=== PATIENT | female | born 1955 | race Caucasian/White ===

== ENCOUNTER 2022-12-24 07:36 | Inpatient (IN) | payer OTHER, MEDICARE ==
--- OUTSIDE RECORDS SUMMARY | 2022-12-24 07:41 | XMS REPORT | Continuity of Care Document ---
:1955 Author Organization [facility] t Address [address] [place] [address] [place] [id number] Care Team Providers Name Role Phone RAYMOND BRENNAN Primary Care Physician Unavailable Anjel Portillo Attending Clinician UYEN ESTES Attending Clinician Unavailable UYEN ESTES Attending Clinician Unavailable Criselda Villegas RN Attending Clinician Unavailable IGLESIA BUSH Attending Clinician Unavailable ROLDAN TAYLOR Attending Clinician Unavailable Roldan Taylor MD Attending Clinician Raymond Brennan MD Attending Clinician UYEN ESTES Admitting Clinician Unavailable ROLDAN TAYLOR Admitting Clinician Unavailable Payers Payer Name Policy Type Policy Number Effective Date Expiration Date S rené MEDICARE RAILROAD [id number] 2020 A\T\[id number] 00:00:00 [facility] [id number] 2021 MEDICARE SUPPLEMENT 00:00:00 [facility] [id number] 2020 (MEDICARE 00:00:00 REPLACEMENT HMO) Problems Condition Condition Condition Status Onset Resolution Last Treating Co mments Source Name Details Category Date Date Treatment Clinician Date Abnormal Abnormal Disease Active 2021-05 Unive rs findings findings 2-13 ity of on on 00:00: [place] diagnostic diagnostic 00 Me dical imaging of imaging of Br anch other other specified specified body body structures structures Breast Breast Disease Active 2021-05 Univers cancer cancer 2-13 [place] of screening[place] high [place] high risk 00 Medi james patient patient Branch Breast Breast Disease Active 2021-05 Univers pain in pain in 2-13 ity of female female 00:00: [place] 00 Medical Branch Family Family Disease Active 2021-05 Univers history of history of 2-13 it y of breast breast 00:00: [place] cancer in cancer in 00 [facility] sister sister Branch Screening Screening Disease Active 2021-05 Uni vers for for 0-14 [place] of osteoporos osteoporos [place] Medical [place] Other Other Disease Active 2021-05 [facility] specified specified 0-14 [place] of disorders disorders [place] of bone of bone 00 Medical density density Branch and and structure, structure, other site other site BMI BMI Disease Active 2021-05 Univers 32.0-32.9, 32.0-32.9, 0-14 it y of adult adult 00:00: [place] 00 Medical Branch S/P S/P Disease Active 2021-05 Univers hysterecto hysterecto 0-14 it y of my my 00:00: [place] 00 Medical Branch Pap smear Pap smear Disease Active 2021-05 Uni vers of cervix of cervix 0-14 ity of not needed not needed [place] Numbness Numbness Problem Resolve 2022-02-27 Memoria (finding) (finding) d 03:28:37 l Resolved Miguelangel Problem 02/27/2022 [facility] Anemia Anemia Problem Active 2022-12-09 [place] (disorder) (disorder) 13:16:05 l Active [place] Problem 12/09/2022 [facility] [place] 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 13:16:05 l s s Miguelangel (disorder) (disorder) Active Problem 12/09/2022 [facility] [place] Hyperlipid Hyperlipi Problem Active 2022-12-09 Memoria emia demia 13:16:05 l (disorder) (disorder) He rmann Active Problem 12/09/2022 [facility] [place] Lumbar Lumbar Problem Active 2022-12-09 [place] spondylosi spondylosi 13:16:05 l s s [place] (disorder) (disorder) Active Problem 12/09/2022 [facility] [place] 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 Kunal n uncertain of significan uncertain ce significan (disorder) ce (disorder) Active Problem 12/09/2022 [facility] [place] Paresthesi Paresthes Problem Active 2022-12-09 Memoria a ia 13:16:05 l (finding) (finding) Herm carlos alberto Active Problem 12/09/2022 [facility] [place] 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-09 Memoria nerve l nerve 13:16:05 l disease disease Miguelangel (disorder) (disorder) Active Problem 12/09/2022 [facility] [place] Restless Restless Problem Active 2022-12-09 Memoria legs legs 13:16:05 l (disorder) (disorder) [place] Active Problem 12/09/2022 [facility] [place] Allergies, Adverse Reactions, Alerts Allergy Allergy Status Severity Reaction(s) Onset Inactive Treating Comm ents Source Name Type Date Date Clinician NO KNOWN Drug Active Univers ALLERGIE Class ity of S [facility] No Known No Known Active Memori a Medicati Medicati l on on [place] Allergie Allergie s s Social History Social Habit Start Date Stop Date Quantity Comments Source History SDIL University o f Alcohol Frequency [facility] edical Branch History [facility] University o f Alcohol Std Drinks [facility] History [facility] University o f Alcohol Binge [facility] al Branch Gender identity [facility] Alcohol intake 2022-05-02 2022-05-02 .14 /d University of 00:00:00 00:00:00 [facility] Exposure to 2022-02-18 2022-02-28 Not sure University of SARS-CoV-2 (event) 00:00:00 12:59:00 [facility] Cigarettes smoked 2022-02-28 2022-02-28 Univers ity of current (pack per 00:00:00 00:00:00 [facility] ) - Reported Branch Cigarette 2022-02-28 2022-02-28 University of pack-years 00:00:00 00:00:00 [facility] Tobacco use and 2022-02-28 2022-02-28 Smokeless Universit y of exposure 00:00:00 00:00:00 tobacco non-user [facility] [place] [facility] Alcohol Comment 2022-02-28 2022-02-28 per month Universit y of 00:00:00 00:00:00 [facility] History of tobacco 1969-02-28 2000-02-29 Cigarette Smoker University of use 00:00:00 00:00:00 [facility] Sex [birth year] [facility] 00:00:00 00:00:00 Hospital Smoking Status Start Date Stop Date Source Tobacco smoking consumption [facility] unknown Tobacco smoking status 2022-12-06 14:10:32 2022-12-06 14:10:32 [facility] Medications Ordered Filled Start Stop Current Ordering Indication Dosage Frequency Signature Comments Components Source Medication Medication Date Date Medication? Clinician (SIG) Name Name celecoxib Yes TAKE ONE [place] 200 mg oral 7-19 (1) l capsule 14:20: CAPSULE(S) Herm carlos alberto 00 BY MOUTH TWICE A DAY NEEDED. rOPINIRole Yes See Memoria 2 mg oral 6-20 Instructio l tablet 14:40: ns, TAKE Miguelangel 00 ONE (1) TABLET(S) BY MOUTH AT BEDTIME., # 90 ea, 1 Refill(s), Pharmacy: [place] [id number], 167.64, cm, 08/29/22 11:23:00 CDT, Height, 92.727, kg, 08/29/22 11:23:00 CDT, Weight gadobenate 2023- No [id number] .2mL/kg 0.2 mL/kg, Univers dimeglumine 10-03 05-16 Intravenou i ty of (MULTIHANCE 17:00: 16:59 s, ONCE, 1 [place] -15 mL) 00 :00 dose, On Medical injection [facility] Branch 0.2 mL/kg 10/03/22 at 1200, Routine iron 2022-0 Yes 325 mg = 1 Memoria sulfate 4-11 tab, PO, l (ferrous 16:56: Daily, 0 Aleyda nn sulfate) 00 Refill(s) 325 mg oral tablet iron 2022-0 Yes 325 mg = 1 Memoria sulfate 4-11 tab, PO, l (ferrous 16:56: Daily, 0 Aleyda nn sulfate) 00 Refill(s) 325 mg oral tablet rOPINIRole 2022-0 Yes 2 mg = 1 Mem oria 2 mg oral 2-21 tab, PO, l tablet 20:09: Bedtime, # Aleyda nn 90 tab, 1 Refill(s), Pharmacy: [facility] [place], 167.64, cm, 07/11/22 13:52:00 DIRECTOR LOAN, Height, 92.273, kg, 07/11/22 13:52:00 DIRECTOR LOAN, Weight rOPINIRole 2023-0 Yes 2 mg = 1 Mem oria 2 mg oral 2-21 tab, PO, l tablet 20:09: Bedtime, # Aleyda nn 90 tab, 1 Refill(s), Pharmacy: [facility] Pharm[facility] [place], 167.64, cm, 07/11/22 13:52:00 DIRECTOR LOAN, Height, 92.273, kg, 07/11/22 13:52:00 DIRECTOR LOAN, Weight pregabalin 2-1 Yes 100mg Take 100 Un charlie 100 mg 0-11 mg by ity of capsule 13:52: mouth in [place] [address] the Medical morning. Branch pregabalin 2-1 Yes 100mg Take 100 Un charlie 100 mg 0-11 mg by ity of capsule 13:52: mouth in [place] [address] the Medical morning. Branch pregabalin 2022-1 Yes 100mg Take 100 Un charlie 100 mg 0-11 mg by ity of capsule 13:52: mouth in [place] [address] the Medical morning. Branch pregabalin 2022-1 Yes 100mg Take 100 Un charlie 100 mg 0-11 mg by ity of capsule 13:52: mouth in [place] [address] the Medical morning. Branch pregabalin 2022-1 Yes 100mg Take 100 Un charlie 100 mg 0-11 mg by ity of capsule 13:52: mouth in [place] [address] the Medical morning. Branch pregabalin 2022-1 Yes 100mg Take 100 Un charlie 100 mg 0-11 mg by ity of capsule 13:52: mouth in [place] [address] the Medical morning. Branch pregabalin 2022-1 Yes 100mg Take 100 Un charlie 100 mg 0-11 mg by ity of capsule 13:52: mouth in [place] [address] the Medical morning. Branch pregabalin 2022-1 Yes 100mg Take 100 Un charlie 100 mg 0-11 mg by ity of capsule 13:52: mouth in [place] [address] the Medical morning. Branch pregabalin 2022-1 Yes 100mg Take 100 Un charlie 100 mg 0-11 mg by ity of capsule 13:52: mouth in [place] 33 the Medical morning. Branch latanoprost 2021-05 Yes INSTILL Mem oria ophthalmic 0-07 ONE (1) l 0.005% 20:49: DROP IN [place] solution 00 EACH EYE AT BEDTIME. rOPINIRole 2021-05 Yes TAKE ONE Mem oria 1 mg oral 0-07 (1) l tablet 20:49: TABLET(S) [place] n 00 BY MOUTH AT BEDTIME. DULoxetine 2021-05 Yes TAKE ONE Mem oria 60 mg oral 0-07 (1) l delayed 20:49: CAPSULE(S) Herm carlos alberto release 00 BY MOUTH capsule DAILY WITH FOOD. atorvastati 2021-05 Yes TAKE ONE Me moria n 40 mg 0-07 (1) l oral tablet 20:49: TABLET(S) H ermann 00 BY MOUTH AT BEDTIME. trazodone 2021-05 Yes TAKE ONE [place] 100 mg oral 0-07 (1) l tablet 20:49: TABLET(S) [place] n 00 BY MOUTH AT BEDTIME FOR INSOMNIA. latanoprost 2021-05 Yes INSTILL Mem oria ophthalmic 0-07 ONE (1) l 0.005% 20:49: DROP IN [place] solution 00 EACH EYE AT BEDTIME. rOPINIRole 2021-05 Yes TAKE ONE Mem oria 1 mg oral 0-07 (1) l tablet 20:49: TABLET(S) [place] n 00 BY MOUTH AT BEDTIME. DULoxetine 2021-05 Yes TAKE ONE Mem oria 60 mg oral 0-07 (1) l delayed 20:49: CAPSULE(S) Herm carlos alberto release 00 BY MOUTH capsule DAILY WITH FOOD. atorvastati 2021-05 Yes TAKE ONE Me moria n 40 mg 0-07 (1) l oral tablet 20:49: TABLET(S) H ermann 00 BY MOUTH AT BEDTIME. pregabalin 2021-05 Yes TAKE ONE Mem oria 100 mg oral 0-07 (1) l capsule 20:49: CAPSULE(S) Herm carlos alberto 00 BY MOUTH ONCE A DAY. trazodone 2021-05 Yes TAKE ONE [place] 100 mg oral 0-07 (1) l tablet 20:49: TABLET(S) [place] n 00 BY MOUTH AT BEDTIME FOR INSOMNIA. pregabalin 2021-05 Yes TAKE ONE Mem oria 100 mg oral 0-07 (1) l capsule 20:49: CAPSULE(S) Herm carlos alberto 00 BY MOUTH ONCE A DAY. omeprazole 2021-05 Yes TAKE ONE Mem oria 20 mg oral 0-07 (1) l delayed 20:49: CAPSULE(S) Herm carlos alberto release 00 BY MOUTH capsule DAILY. omeprazole 2021-05 Yes TAKE ONE Mem oria 20 mg oral 0-07 (1) l delayed 20:49: CAPSULE(S) Herm carlos alberto release 00 BY MOUTH capsule DAILY. latanoprost 2021-05 Yes INSTILL Mem oria ophthalmic 0-07 ONE (1) l 0.005% 20:49: DROP IN [place]angel solution 00 EACH EYE AT BEDTIME. rOPINIRole 2021-05 Yes TAKE ONE Mem oria 1 mg oral 0-07 (1) l tablet 20:49: TABLET(S) [place] n 00 BY MOUTH AT BEDTIME. DULoxetine 2021-05 Yes TAKE ONE Mem oria 60 mg oral 0-07 (1) l delayed 20:49: CAPSULE(S) Herm carlos alberto release 00 BY MOUTH capsule DAILY WITH FOOD. atorvastati 2021-05 Yes TAKE ONE Me moria n 40 mg 0-07 (1) l oral tablet 20:49: TABLET(S) H ermann 00 BY MOUTH AT BEDTIME. trazodone 2021-05 Yes TAKE ONE [place] 100 mg oral 0-07 (1) l tablet 20:49: TABLET(S) Kunal n 00 BY MOUTH AT BEDTIME FOR INSOMNIA. pregabalin 2021-05 Yes TAKE ONE Mem oria 100 mg oral 0-07 (1) l capsule 20:49: CAPSULE(S) Herm carlos alberto 00 BY MOUTH ONCE A DAY. omeprazole 2021-05 Yes TAKE ONE Mem oria 20 mg oral 0-07 (1) l delayed 20:49: CAPSULE(S) Herm carlos alberto release 00 BY MOUTH capsule DAILY. latanoprost 2021-05 Yes INSTILL Mem oria ophthalmic 0-07 ONE (1) l 0.005% 20:49: DROP IN [place]angel solution 00 EACH EYE AT BEDTIME. DULoxetine 2021-05 Yes TAKE ONE Mem oria 60 mg oral 0-07 (1) l delayed 20:49: CAPSULE(S) Herm carlos alberto release 00 BY MOUTH capsule DAILY WITH FOOD. atorvastati 2021-05 Yes TAKE ONE Me moria n 40 mg 0-07 (1) l oral tablet 20:49: TABLET(S) H ermann 00 BY MOUTH AT BEDTIME. trazodone 2021-05 Yes TAKE ONE [place] 100 mg oral 0-07 (1) l tablet 20:49: TABLET(S) Kunal n 00 BY MOUTH AT BEDTIME FOR INSOMNIA. pregabalin 2021-05 Yes TAKE ONE Mem oria 100 mg oral 0-07 (1) l capsule 20:49: CAPSULE(S) Herm carlos alberto 00 BY MOUTH ONCE A DAY. omeprazole 2021-05 Yes TAKE ONE Mem oria 20 mg oral 0-07 (1) l delayed 20:49: CAPSULE(S) Herm carlos alberto release 00 BY MOUTH capsule DAILY. rOPINIRole 2021-05 Yes TAKE ONE Mem oria 1 mg oral 0-07 (1) l tablet 20:49: TABLET(S) Kunal n 00 BY MOUTH AT BEDTIME. Alpha 2021-05 Yes PO, 0 Memoria Lipoic Acid 0-07 Refill(s) l 20:48: Miguel[place] 00 Alpha 2021-05 Yes PO, 0 Memoria Lipoic Acid 0-07 Refill(s) l 20:48: [place] 00 Alpha 2021-05 Yes PO, 0 Memoria Lipoic Acid 0-07 Refill(s) l 20:48: [place] 00 Alpha 2021-05 Yes PO, 0 Memoria Lipoic Acid 0-07 Refill(s) l 20:48: [place] 00 clobetasoL 2021-05 Yes APPLY TO Uni vers 0.05 % 0-07 AFFECTED ity of cream 00:00: AREA TWICE [place] 00 A DAY FOR Medical 2 WEEKS, Branch THEN STOP FOR 1 WEEK. omeprazole 2021-05 Yes 20mg Take 20 mg U nivers 20 mg 0-07 by mouth ity of capsule 00:00: in the [place] 00 morning. Medical Branch clobetasoL 2021-05 Yes APPLY TO Uni vers 0.05 % 0-07 AFFECTED ity of cream 00:00: AREA TWICE [place] 00 A DAY FOR Medical 2 WEEKS, Branch THEN STOP FOR 1 WEEK. omeprazole 2021-05 Yes 20mg Take 20 mg U nivers 20 mg 0-07 by mouth ity of capsule 00:00: in the [place] 00 morning. Medical Branch clobetasoL 2021- Yes APPLY TO Uni vers 0.05 % 0-07 AFFECTED ity of cream 00:00: AREA TWICE [place] 00 A DAY FOR Medical 2 WEEKS, Branch THEN STOP FOR 1 WEEK. omeprazole 2-1 Yes 20mg Take 20 mg U nivers 20 mg 0-07 by mouth ity of capsule 00:00: in the [place] 00 morning. Medical Branch clobetasoL 2021- Yes APPLY TO Uni vers 0.05 % 0-07 AFFECTED ity of cream 00:00: AREA TWICE [place] 00 A DAY FOR Medical 2 WEEKS, Branch THEN STOP FOR 1 WEEK. omeprazole 2021-1 Yes 20mg Take 20 mg U nivers 20 mg 0-07 by mouth ity of capsule 00:00: in the [place] 00 morning. Medical Branch clobetasoL 2021- Yes APPLY TO Uni vers 0.05 % 0-07 AFFECTED ity of cream 00:00: AREA TWICE [place] 00 A DAY FOR Medical 2 WEEKS, Branch THEN STOP FOR 1 WEEK. omeprazole 2021-1 Yes 20mg Take 20 mg U nivers 20 mg 0-07 by mouth ity of capsule 00:00: in the [place] 00 morning. Medical Branch clobetasoL 2021- Yes APPLY TO Uni vers 0.05 % 0-07 AFFECTED ity of cream 00:00: AREA TWICE [place] 00 A DAY FOR Medical 2 WEEKS, Branch THEN STOP FOR 1 WEEK. omeprazole 2021- Yes 20mg Take 20 mg U nivers 20 mg 0-07 by mouth ity of capsule 00:00: in the [place] 00 morning. Medical Branch clobetasoL 2021- Yes APPLY TO Uni vers 0.05 % 0-07 AFFECTED ity of cream 00:00: AREA TWICE [place] 00 A DAY FOR Medical 2 WEEKS, Branch THEN STOP FOR 1 WEEK. omeprazole 2-1 Yes 20mg Take 20 mg U nivers 20 mg 0-07 by mouth ity of capsule 00:00: in the [place] 00 morning. Medical Branch clobetasoL 2021- Yes APPLY TO Uni vers 0.05 % 0-07 AFFECTED ity of cream 00:00: AREA TWICE [place] 00 A DAY FOR Medical 2 WEEKS, Branch THEN STOP FOR 1 WEEK. omeprazole 2-1 Yes 20mg Take 20 mg U nivers 20 mg 0-07 by mouth ity of capsule 00:00: in the [place] 00 morning. [facility] barium 2021-0 2022- No [id number] 680g 680 g, Uni vers sulfate 02-01 Oral, ity of (LIQUID E-Z 13:00: 13:00 ONCE, 1 [place] HELMS) 60 % 00 :00 dose, On Medi james (w/v) oral [facility] suspension 02/01/22 at 680 g 0800, Routine DULoxetine Yes TAKE ONE Uni vers 60 mg 8-26 (1) ity of capsule 00:00: CAPSULE(S) [place] 00 BY MOUTH Medical DAILY WITH [place] FOOD. latanoprost Yes INSTILL Uni vers 0.005 % 8-26 ONE (1) ity of ophthalmic 00:00: DROP [place] drops 00 EACH EYE Medical AT [place] BEDTIME. rOPINIRole Yes 1mg Take 1 mg Un charlie 1 mg tablet 8-26 by mouth ity of 00:00: at [place] [address] bedtime. [facility] Branch DULoxetine Yes TAKE ONE Uni vers 60 mg 8-26 (1) ity of capsule 00:00: CAPSULE(S) [place] 00 BY MOUTH Medical DAILY WITH [place] FOOD. latanoprost Yes INSTILL Uni vers 0.005 % 8-26 ONE (1) ity of ophthalmic 00:00: DROP [place] drops 00 EACH EYE Medical AT [place] BEDTIME. rOPINIRole 0 Yes 1mg Take 1 mg Un charlie 1 mg tablet 8-26 by mouth ity of 00:00: at [place] [address] bedtime. [facility] DULoxetine Yes TAKE ONE Uni vers 60 mg 8-26 (1) ity of capsule 00:00: CAPSULE(S) [place] 00 BY MOUTH Medical DAILY WITH [place] FOOD. latanoprost Yes INSTILL Uni vers 0.005 % 8-26 ONE (1) ity of ophthalmic 00:00: DROP [place] drops 00 EACH EYE Medical AT [place] BEDTIME. rOPINIRole Yes 1mg Take 1 mg Un charlie 1 mg tablet 8-26 by mouth ity of 00:00: at [place] [address] bedtime. [facility] DULoxetine Yes TAKE ONE Uni vers 60 mg 8-26 (1) ity of capsule 00:00: CAPSULE(S) [place] 00 BY MOUTH Medical DAILY WITH [place] FOOD. latanoprost 2-0 Yes INSTILL Uni vers 0.005 % 8-26 ONE (1) ity of ophthalmic 00:00: DROP [place] drops 00 EACH EYE Medical AT [place] BEDTIME. rOPINIRole 2-0 Yes 1mg Take 1 mg Un charlie 1 mg tablet 8-26 by mouth ity of 00:00: at [place] [address] bedtime. Medical Branch DULoxetine 2021-0 Yes TAKE ONE Uni vers 60 mg 8-26 (1) ity of capsule 00:00: CAPSULE(S) [place] 00 BY MOUTH Medical DAILY WITH [place] FOOD. latanoprost 2-0 Yes INSTILL Uni vers 0.005 % 8-26 ONE (1) ity of ophthalmic 00:00: [place]OP [place] drops 00 EACH EYE Medical AT [place] BEDTIME. rOPINIRole 2-0 Yes 1mg Take 1 mg Un charlie 1 mg tablet 8-26 by mouth ity of 00:00: at [place] [address] bedtime. Medical Branch DULoxetine 2021-0 Yes TAKE ONE Uni vers 60 mg 8-26 (1) ity of capsule 00:00: CAPSULE(S) [place] 00 BY MOUTH Medical DAILY WITH [place] FOOD. latanoprost 2-0 Yes INSTILL Uni vers 0.005 % 8-26 ONE (1) ity of ophthalmic 00:00: DROP [place] drops 00 EACH EYE Medical AT [place] BEDTIME. rOPINIRole 2-0 Yes 1mg Take 1 mg Un charlie 1 mg tablet 8-26 by mouth ity of 00:00: at [place] [address] bedtime. Medical Branch DULoxetine 2021-0 Yes TAKE ONE Uni vers 60 mg 8-26 (1) ity of capsule 00:00: CAPSULE(S) [place] 00 BY MOUTH Medical DAILY WITH [place] FOOD. latanoprost 2-0 Yes INSTILL Uni vers 0.005 % 8-26 ONE (1) ity of ophthalmic 00:00: DROP [place] drops 00 EACH EYE Medical AT [place] BEDTIME. rOPINIRole 2-0 Yes 1mg Take 1 mg Un charlie 1 mg tablet 8-26 by mouth ity of 00:00: at [place] [address] bedtime. Medical Branch DULoxetine 2022-0 Yes TAKE ONE Uni vers 60 mg 8-26 (1) ity of capsule 00:00: CAPSULE(S) [place] 00 BY MOUTH Medical DAILY WITH [place] FOOD. latanoprost 0 Yes INSTILL Uni vers 0.005 % 8-26 ONE (1) ity of ophthalmic 00:00: DROP [place] drops 00 EACH EYE Medical AT [place] BEDTIME. rOPINIRole 0 Yes 1mg Take 1 mg Un charlie 1 mg tablet 8-26 by mouth ity of 00:00: at [place] [address] bedtime. Medical Branch DULoxetine Yes TAKE ONE Uni vers 60 mg 8-26 (1) ity of capsule 00:00: CAPSULE(S) [place] 00 BY MOUTH Medical DAILY WITH [place] FOOD. latanoprost Yes INSTILL Uni vers 0.005 % 8-26 ONE (1) ity of ophthalmic 00:00: DROP [place] drops 00 EACH EYE Medical AT [place] BEDTIME. rOPINIRole 0 Yes 1mg Take 1 mg Un charlie 1 mg tablet 8-26 by mouth ity of 00:00: at [place] [address] bedtime. Medical Branch atorvastati Yes 40mg Take 40 mg Univers n 40 mg 8-10 by mouth ity of tablet 00:00: at [place] [address] bedtime. Medical Branch atorvastati 0 Yes 40mg Take 40 mg Univers n 40 mg 8-10 by mouth ity of tablet 00:00: at [place] [address] bedtime. Medical Branch atorvastati 0 Yes 40mg Take 40 mg Univers n 40 mg 8-10 by mouth ity of tablet 00:00: at [place] [address] bedtime. Medical Branch atorvastati 0 Yes 40mg Take 40 mg Univers n 40 mg 8-10 by mouth ity of tablet 00:00: at [place] [address] bedtime. Medical Branch atorvastati 0 Yes 40mg Take 40 mg Univers n 40 mg 8-10 by mouth ity of tablet 00:00: at [place] [address] bedtime. Medical Branch atorvastati 0 Yes 40mg Take 40 mg Univers n 40 mg 8-10 by mouth ity of tablet 00:00: at [place] [address] bedtime. Medical Branch atorvastati 0 Yes 40mg Take 40 mg Univers n 40 mg 8-10 by mouth ity of tablet 00:00: at [place] bedtime. Medical Branch atorvastati 2021-0 Yes 40mg Take 40 mg Univers n 40 mg 8-10 by mouth ity of tablet 00:00: at [place] bedtime. Medical Branch atorvastati 2021-0 Yes 40mg Take 40 mg Univers n 40 mg 8-10 by mouth ity of tablet 00:00: at [place] [address] bedtime. Medical Branch traZODone 2021-0 Yes TAKE ONE Univ ers 100 mg 7-28 (1) ity of tablet 00:00: TABLET(S) BY [facility] FOR INSOMNIA. traZODone 2021-0 Yes TAKE ONE Univ ers 100 mg 7-28 (1) ity of tablet 00:00: TABLET(S) BY [facility] FOR INSOMNIA. traZODone 2021-0 Yes TAKE ONE Univ ers 100 mg 7-28 (1) ity of tablet 00:00: TABLET(S) [place] BY [facility] FOR INSOMNIA. traZODone 2021-0 Yes TAKE ONE Univ ers 100 mg 7-28 (1) ity of tablet 00:00: TABLET(S) [place] BY [facility] FOR INSOMNIA. traZODone 2021-0 Yes TAKE ONE Univ ers 100 mg 7-28 (1) ity of tablet 00:00: TABLET(S) BY [facility] FOR INSOMNIA. traZODone 2021-0 Yes TAKE ONE Univ ers 100 mg 7-28 (1) ity of tablet 00:00: TABLET(S) BY [facility] FOR INSOMNIA. traZODone 2021-0 Yes TAKE ONE Univ ers 100 mg 7-28 (1) ity of tablet 00:00: TABLET(S) [place] BY [facility] FOR INSOMNIA. traZODone 2-0 Yes TAKE ONE Univ ers 100 mg 7-28 (1) ity of tablet 00:00: TABLET(S) BY [facility] FOR INSOMNIA. traZODone 2-0 Yes TAKE ONE Univ ers 100 mg 7-28 (1) ity of tablet 00:00: TABLET(S) [place] 00 BY MOUTH Medical AT BEDTIME Branch FOR INSOMNIA. polyethylen 0 Yes DRINK 8 Uni vers e 7-20 [facility] ity of glycol-elec 00:00: [place] 00 MINUTES Medical 420 gram STARTING Branch solution AT 7 PM UNTIL IT IS 1/2 GONE. THEN 4 HOURS PRIOR DRINK 8 [facility] EVERY 15 MINUTES UNTIL FINISHED. polyethylen Yes DRINK 8 Uni vers e 7-20 [facility] ity of glycol-elec 00:00: [place] 00 MINUTES Medical 420 gram STARTING Branch solution AT 7 PM UNTIL IT IS 1/2 GONE. THEN 4 HOURS PRIOR DRINK 8 [facility] EVERY 15 MINUTES UNTIL FINISHED. polyethylen 0 Yes DRINK 8 Uni vers e 7-20 [facility] ity of glycol-elec 00:00: EVERY 15 [place] 00 MINUTES Medical 420 gram STARTING Branch solution AT 7 PM UNTIL IT IS 1/2 GONE. THEN 4 HOURS PRIOR DRINK 8 [facility] EVERY 15 MINUTES UNTIL FINISHED. polyethylen 0 Yes DRINK 8 Uni vers e 7-20 [facility] ity of glycol-elec 00:00: EVERY [place] 00 MINUTES Medical 420 gram STARTING Branch solution AT 7 PM UNTIL IT IS 1/2 GONE. THEN 4 HOURS PRIOR DRINK 8 [facility] EVERY 15 MINUTES UNTIL FINISHED. polyethylen 0 Yes DRINK 8 Uni vers e 7-20 [facility] ity of glycol-elec 00:00: EVERY [place] 00 MINUTES Medical 420 gram STARTING Branch solution AT 7 PM UNTIL IT IS 1/2 GONE. THEN 4 HOURS PRIOR DRINK 8 [facility] EVERY 15 MINUTES UNTIL FINISHED. polyethylen 0 Yes DRINK 8 Uni vers e 7-20 [facility] ity of glycol-elec 00:00: EVERY [place] 00 MINUTES Medical 420 gram STARTING Branch solution AT 7 PM UNTIL IT IS 1/2 GONE. THEN 4 HOURS PRIOR DRINK 8 [facility] EVERY 15 MINUTES UNTIL FINISHED. polyethylen 0 Yes DRINK 8 Uni vers e 7-20 [facility] ity of glycol-elec 00:00: EVERY 15 [place] 00 MINUTES Medical 420 gram STARTING Branch solution AT 7 PM UNTIL IT IS 1/2 GONE. THEN 4 HOURS PRIOR DRINK 8 [facility] EVERY 15 MINUTES UNTIL FINISHED. polyethylen 0 Yes DRINK 8 Uni vers e 7-20 [facility] ity of glycol-elec 00:00: EVERY 15 [place] 00 MINUTES Medical 420 gram STARTING Branch solution AT 7 PM UNTIL IT IS 1/2 GONE. THEN 4 HOURS PRIOR DRINK 8 [facility] EVERY 15 MINUTES UNTIL FINISHED. polyethylen 2021-0 Yes DRINK 8 Uni vers e 7-20 [facility] ity of glycol-elec 00:00: EVERY 15 [place] 00 MINUTES Medical 420 gram STARTING Branch solution AT 7 PM UNTIL IT IS 1/2 GONE. THEN 4 HOURS PRIOR DRINK 8 OUNCES EVERY 15 MINUTES UNTIL FINISHED. Immunizations Ordered Filled Immunization Date Status Comments [facility] Immunization Name Name SARS-COV-2 COVID-19 2021-12-14 Completed Unive rsity of PFIZER VACCINE 00:00:00 [facility] SARS-COV-2 COVID-19 2021-12-14 Completed Unive rsity of PFIZER VACCINE 00:00:00 [facility] SARS-COV-2 COVID-19 2021-12-14 Completed Unive rsity of PFIZER VACCINE 00:00:00 [facility] SARS-COV-2 COVID-19 2021-12-14 Completed Unive rsity of PFIZER VACCINE 00:00:00 [facility] SARS-COV-2 COVID-19 2021-12-14 Completed Unive rsity of PFIZER VACCINE 00:00:00 [facility] SARS-COV-2 COVID-19 2021-12-14 Completed Unive rsity of PFIZER VACCINE 00:00:00 [facility] SARS-COV-2 COVID-19 2021-12-14 Completed Unive rsity of PFIZER VACCINE 00:00:00 [facility] SARS-COV-2 COVID-19 2021-12-14 Completed Unive rsity of PFIZER VACCINE 00:00:00 [facility] SARS-COV-2 COVID-19 2021-12-14 Completed Unive rsity of PFIZER VACCINE 00:00:00 [facility] SARS-COV-2 COVID-19 2021-04-07 Completed Unive rsity of PFIZER VACCINE 00:00:00 [facility] SARS-COV-2 COVID-19 2021-04-07 Completed Unive rsity of PFIZER VACCINE 00:00:00 [facility] SARS-COV-2 COVID-19 2021-04-07 Completed Unive rsity of PFIZER VACCINE 00:00:00 [facility] SARS-COV-2 COVID-19 2021-04-07 Completed Unive rsity of PFIZER VACCINE 00:00:00 [facility] SARS-COV-2 COVID-19 2021-04-07 Completed Unive rsity of PFIZER VACCINE 00:00:00 [facility] SARS-COV-2 COVID-19 2021-04-07 Completed Unive rsity of PFIZER VACCINE 00:00:00 [facility] SARS-COV-2 COVID-19 2021-04-07 Completed Unive rsity of PFIZER VACCINE 00:00:00 [facility] SARS-COV-2 COVID-19 2021-04-07 Completed Unive rsity of PFIZER VACCINE 00:00:00 [facility] SARS-COV-2 COVID-19 2021-04-07 Completed Unive rsity of PFIZER VACCINE 00:00:00 [facility] Zoster(Zostavax)( 2021-02-01 Completed Unive rsity of ingles) 00:00:00 [facility] Influenza Virus 2021-02-01 Completed Universit y of Vaccine Quad Nasal 00:00:00 [facility] Zoster(Zostavax)( 2021-02-01 Completed Unive rsity of ingles) 00:00:00 [facility] Influenza Virus 2021-02-01 Completed Universit y of Vaccine Quad Nasal 00:00:00 [facility] Zoster(Zostavax)( 2021-02-01 Completed Unive rsity of ingles) 00:00:00 [facility] Influenza Virus 2021-02-01 Completed Universit y of Vaccine Quad Nasal 00:00:00 [facility] Zoster(Zostavax)( 2021-02-01 Completed Unive rsity of ingles) 00:00:00 [facility] Influenza Virus 2021-02-01 Completed Universit y of Vaccine Quad Nasal 00:00:00 [facility] Zoster(Zostavax)( 2021-02-01 Completed Unive rsity of ingles) 00:00:00 [facility] Influenza Virus 2021-02-01 Completed Universit y of Vaccine Quad Nasal 00:00:00 [facility] Zoster(Zostavax)( 2021-02-01 Completed Unive rsity of ingles) 00:00:00 [facility] Influenza Virus 2021-02-01 Completed Universit y of Vaccine Quad Nasal 00:00:00 [facility] Zoster(Zostavax)( 2021-02-01 Completed Unive rsity of ingles) 00:00:00 [facility] Influenza Virus 2021-02-01 Completed Universit y of Vaccine Quad Nasal 00:00:00 [facility] Zoster(Zostavax)( 2021-02-01 Completed Unive rsity of ingles) 00:00:00 [facility] Influenza Virus 2021-02-01 Completed Universit y of Vaccine Quad Nasal 00:00:00 [facility] Zoster(Zostavax)( 2021-02-01 Completed Unive rsity of ingles) 00:00:00 [facility] Influenza Virus 2021-02-01 Completed Universit y of Vaccine Quad Nasal 00:00:00 [facility] SARS-COV-2 COVID-19 2020-08-14 Completed Unive rsity of PFIZER VACCINE 00:00:00 [facility] SARS-COV-2 COVID-19 2020-08-14 Completed Unive rsity of PFIZER VACCINE 00:00:00 [facility] SARS-COV-2 COVID-19 2020-08-14 Completed Unive rsity of PFIZER VACCINE 00:00:00 [facility] SARS-COV-2 COVID-19 2020-08-14 Completed Unive rsity of PFIZER VACCINE 00:00:00 [facility] SARS-COV-2 COVID-19 2020-08-14 Completed Unive rsity of PFIZER VACCINE 00:00:00 [facility] SARS-COV-2 COVID-19 2020-08-14 Completed Unive rsity of PFIZER VACCINE 00:00:00 [facility] SARS-COV-2 COVID-19 2020-08-14 Completed Unive rsity of PFIZER VACCINE 00:00:00 [facility] SARS-COV-2 COVID-19 2020-08-14 Completed Unive rsity of PFIZER VACCINE 00:00:00 [facility] SARS-COV-2 COVID-19 2020-08-14 Completed Unive rsity of PFIZER VACCINE 00:00:00 [facility] SARS-COV-2 COVID-19 2020-08-02 Completed Unive rsity of PFIZER VACCINE 00:00:00 [facility] SARS-COV-2 COVID-19 2020-08-02 Completed Unive rsity of PFIZER VACCINE 00:00:00 [facility] SARS-COV-2 COVID-19 2020-08-02 Completed Unive rsity of PFIZER VACCINE 00:00:00 [facility] SARS-COV-2 COVID-19 2020-08-02 Completed Unive rsity of PFIZER VACCINE 00:00:00 [facility] SARS-COV-2 COVID-19 2020-08-02 Completed Unive rsity of PFIZER VACCINE 00:00:00 [facility] SARS-COV-2 COVID-19 2020-08-02 Completed Unive rsity of PFIZER VACCINE 00:00:00 [facility] SARS-COV-2 COVID-19 2020-08-02 Completed Unive rsity of PFIZER VACCINE 00:00:00 [facility] SARS-COV-2 COVID-19 2020-08-02 Completed Unive rsity of PFIZER VACCINE 00:00:00 [facility] SARS-COV-2 COVID-19 2020-08-02 Completed Unive rsity of PFIZER VACCINE 00:00:00 [facility] Vital Signs Vital Name Observation Time Observation Value Comments Source Systolic blood 2022-05-02 14:16:00 115 mm[Hg] Univer sity of pressure [facility] Diastolic blood 2022-05-02 14:16:00 75 mm[Hg] Unive rsity of pressure [facility] Heart rate 2022-05-02 14:16:00 90 /min [facility] Body temperature 2022-05-02 14:16:00 36.78 [facility] 2022-05-02 14:16:00 16 /min [facility] Body height 2022-05-02 14:16:00 165.1 cm [facility] Body weight 2022-05-02 14:16:00 89.223 kg [facility] BMI 2022-05-02 14:16:00 32.73 kg/m2 Universi [facility] Oxygen saturation in 2022-05-02 14:16:00 95 /min [facility] Arterial blood by [facility] Pulse oximetry Branch Systolic blood 2022-02-28 18:37:00 126 mm[Hg] Univer sity of pressure [facility] Diastolic blood 2022-02-28 18:37:00 77 mm[Hg] Unive rsity of pressure [facility] Heart rate 2022-02-28 18:37:00 86 /min Universi ty [facility] Body temperature 2022-02-28 18:37:00 36.56 Eloina [facility] Respiratory rate 2022-02-28 18:37:00 17 /min [facility] Body height 2022-02-28 18:37:00 165.1 cm Universi ty [facility] Body weight 2022-02-28 18:37:00 89[facility]994 [facility] BMI 2022-02-28 18:37:00 33.02 kg/m2 [facility] Systolic (mm Hg) 2022-12-06 14:10:00 Teo rial Miguelangel Diastolic (mm Hg) 2022-12-06 14:10:00 Mem orial Miguelangel Heart Rate 2022-12-06 14:10:00 [facility] [place] Height 2022-12-06 14:10:00 5 [ft_i] [facility] Weight 2022-12-06 14:10:00 [facility] Calculated 2022-12-06 14:10:00 Memori al Miguelangel Systolic (mm Hg) 2022-08-29 15:37:00 [facility] [place] Diastolic (mm Hg) 2022-08-29 15:37:00 Mem orial Miguelangel Heart Rate 2022-08-29 15:37:00 [facility] Height 2022-08-29 15:37:00 5 [ft_i] [facility] [place] Weight 2022-08-29 15:37:00 [facility] BMI Calculated 2022-08-29 15:37:00 [facility] [place] Systolic (mm Hg) 2022-07-11 19:30:00 Teo rial Miguelangel Diastolic (mm Hg) 2022-07-11 19:30:00 Mem orial [place] Heart Rate 2022-07-11 19:30:00 [facility] [place] Height 2022-07-11 19:30:00 5 [ft_i] [facility] Weight 2022-07-11 19:30:00 [facility] BMI Calculated 2022-07-11 19:30:00 [facility] [place] Systolic (mm Hg) 2022-04-10 14:17:00 Te[facility] [place] Diastolic (mm Hg) 2022-04-10 14:17:00 Mem orial [place] Heart Rate 2022-04-10 14:17:00 [facility] Height 2022-04-10 14:17:00 5 [ft_i] [facility] Weight 2022-04-10 14:17:00 [facility] [place] BMI Calculated 2022-04-10 14:17:00 [facility] [place] Systolic (mm Hg) 2022-02-24 20:12:00 Teo rial Miguelangel Diastolic (mm Hg) 2022-02-24 20:12:00 Mem orial Miguelangel Heart Rate 2022-02-24 20:12:00 [facility] [place] Respitory Rate 2022-02-24 20:12:00 [facility] Height 2022-02-24 20:12:00 165.1 cm [facility] Weight 2022-02-24 20:12:00 [facility] [place] BMI Calculated 2022-02-24 20:12:00 [facility] [place] Procedures Procedure Date / Time Performing Clinician Source Performed DEXA AXIAL (HIP AND SPINE) 2022-03-23 16:50:15 Kristie Estes [facility] CONSENT/REFUSAL FOR 2022-03-23 16:13:52 [facility] DIAGNOSIS AND TREATMENT [facility] ASSIGNMENT OF BENEFITS 2022-03-23 16:13:24 Doctor Unassigned, [facility] US VASCULAR SCREENING 2021-10-05 21:14:12 Raymond Brennan [facility] HEART SCAN PLUS CT HEART SCAN PLUS W 2021-10-05 20:39:11 [facility] [place] Hysterectomy<sup>2</sup> Memoria l Miguelangel [facility] [place] section<sup>1</sup> Plan of Care Planned Activity Planned Date Details Comments Source Future Scheduled 2022-11-06 BREAST CANCER [facility] Test 17:09:06 SCREENING [code = BREAST CANCER SCREENING] Future Scheduled 2022-11-06 Screening for [facility] Test 17:09:06 malignant neoplasm of colon (procedure) [code = 713783874] Future Scheduled 2022-11-06 Screening for [facility] Test 17:09:06 malignant neoplasm of colon (procedure) [code = 837759832] Future Scheduled 2022-11-06 SHINGLES VACCINES (1 Met [facility] Test 17:09:06 of 2) [code = SHINGLES VACCINES (1 of 2)] Future Scheduled 2022-11-06 65+ PNEUMOCOCCAL [facility] Test 17:09:06 VACCINE (1 - PCV) [code = 65+ PNEUMOCOCCAL VACCINE (1 - PCV)] Future Scheduled 2022-11-06 COVID-19 VACCINE (2 - [facility] Test 17:09:06 Pfizer series) [code = COVID-19 VACCINE (2 - Pfizer series)] Future Scheduled 2022-11-06 INFLUENZA VACCINE Method [facility] Test 17:09:06 [code = INFLUENZA VACCINE] Future Scheduled 2022-11-06 Screening for [facility] Test 17:09:06 malignant neoplasm of colon (procedure) [code = 809559560] Future Scheduled 2022-11-06 Screening for [facility] Test 17:09:06 malignant neoplasm of colon (procedure) [code = 970296591] Future Scheduled 2022-11-06 Screening for [facility] Test 17:09:06 malignant neoplasm of colon (procedure) [code = 251338892] Future Scheduled 2022-11-06 Hepatitis C screening [facility] Test 17:09:06 (procedure) [code = 518975728] Future Scheduled 2022-02-15 HEPATITIS B VACCINES Met [facility] Test 13:54:39 (1 of 3 - 3-dose series) [code = HEPATITIS B VACCINES (1 of 3 - 3-dose series)] Future Scheduled 2022-02-15 Hepatitis C screening [facility] Test 13:54:39 (procedure) [code = 891470853] Future Scheduled 2022-02-15 BREAST CANCER [facility] Test 13:54:39 SCREENING [code = BREAST CANCER SCREENING] Future Scheduled 2022-02-15 COLONOSCOPY SCREENING [facility] Test 13:54:39 [code = COLONOSCOPY SCREENING] Future Scheduled 2022-02-15 SHINGLES VACCINES (1 Met [facility] Test 13:54:39 of 2) [code = SHINGLES VACCINES (1 of 2)] Future Scheduled 2022-02-15 65+ [facility] 13:54:39 VACCINE (1 - PCV) [code = 65+ PNEUMOCOCCAL VACCINE (1 - PCV)] Future Scheduled 2022-02-15 COVID-19 VACCINE (2 - [facility] Test 13:54:39 Pfizer series) [code = COVID-19 VACCINE (2 - Pfizer series)] Future Scheduled 2022-02-15 INFLUENZA VACCINE Method [facility] Test 13:54:39 [code = INFLUENZA VACCINE] Future Scheduled 2022-02-15 HEPATITIS B VACCINES Met [facility] Test 13:54:39 (1 of 3 - 3-dose series) [code = HEPATITIS B VACCINES (1 of 3 - 3-dose series)] Future Scheduled 2022-02-15 Hepatitis C screening [facility] Test 13:54:39 (procedure) [code = 702484246] Future Scheduled 2022-02-15 BREAST CANCER [facility] Test 13:54:39 SCREENING [code = BREAST CANCER SCREENING] Future Scheduled 2022-02-15 COLONOSCOPY SCREENING [facility] Test 13:54:39 [code = COLONOSCOPY SCREENING] Future Scheduled 2022-02-15 SHINGLES VACCINES (1 Met [facility] Test 13:54:39 of 2) [code = SHINGLES VACCINES (1 of 2)] Future Scheduled 2022-02-15 65+ [facility] Test 13:54:39 VACCINE (1 - PCV) [code = 65+ PNEUMOCOCCAL VACCINE (1 - PCV)] Future Scheduled 2022-02-15 COVID-19 VACCINE (2 - [facility] Test 13:54:39 Pfizer series) [code = COVID-19 VACCINE (2 - Pfizer series)] Future Scheduled 2022-02-15 INFLUENZA VACCINE Method [facility] Test 13:54:39 [code = INFLUENZA VACCINE] Encounters Start End Encounter Admission Attending Care Care Encounter Source Date/Time Date/Time Type Type Clinicians Facility Department ID 2023-05-10 2023-05-10 Outpatient MHIE MHIE [id number] Memoria 13:00:00 13:00:00 07 nadya Means 2022-12-06 2022-12-07 Outpatient MHIE MNA [id number] Memoria 14:15:00 04:59:59 Neurology 06 l Tiffany Stephenann 2022-12-06 2022-12-06 Outpatient RAF PortilloSCHNYDIA MHMISCHER [id number] 09:15:00 23:59:59 Anjel Kirti King 2022-12-06 2022-12-06 Outpatient MHIE MHIE [id number] Memoria 09:15:00 09:15:00 06 nadya Means 2022-12-06 2022-12-06 Outpatient MHIE MHIE [id number] Memoria 09:15:00 09:15:00 06 nadya Miguelangel 2022-10-03 2022-10-03 Outpatient R UYEN ESTES [facility] B [id number] Univers 09:49:03 23:59:00 UYEN ESTES [facility] 2022-10-03 2022-10-03 [facility] 1.2.840.114 [id number] Univers 09:49:03 23:59:00 Encounter Uyen SPECIALTY 350.1.13.10 ity of CARE 4.2.7.2.[address] [facility] AT [id number] [facility] 2022-08-29 2022-08-30 Outpatient MHIE MNA [id number] Memoria 15:45:00 04:59:59 Neurology 05 l Hornitos Miguelangel 2022-08-29 2022-08-30 Outpatient MHIE MNA [id number] Memoria 15:45:00 04:59:59 Neurology 05 l Tiffany Miguelangel 2022-08-29 2022-08-29 Outpatient RAF PortilloSCHER MHMISCHER [id number] 10:45:00 23:59:59 Anjel Yessi King 2022-08-29 2022-08-29 Outpatient MHIE MHIE [id number] Memoria 10:45:00 10:45:00 05 l Miguelangel 2022-07-11 2022-07-12 Outpatient MHIE MNA [id number] Memoria 19:20:00 05:59:59 Neurology 04 nadya Stephenann 2022-07-11 2022-07-12 Outpatient MHIE MNA [id number] Memoria 19:20:00 05:59:59 Neurology 04 nadya Stephenann 2022-07-11 2022-07-11 Outpatient DRE PortilloSCHER [id number] 13:20:00 23:59:59 Anjel 04 Fernando 2022-07-11 2022-07-11 Outpatient MHIE MHIE [id number] Memoria 13:20:00 13:20:00 04 nadya Miguelangel 2022-06-12 2022-06-12 Outpatient R [facility] [id number] Univers 09:00:00 09:00:00 [facility] 2022-05-02 2022-05-02 Outpatient R UYEN ESTES [facility] B [id number] Univers 08:30:00 09:20:53 UYEN ESTES [facility] 2022-05-02 2022-05-02 Office Camila [facility] [id number] Univers 08:30:00 09:20:53 Visit Uyen VAZQUEZ 350.1.13.10 it y of WOMEN'S 4.2.7.2.686 [facility] [id number] [address] 2022-04-19 2022-04-19 Ambulatory MHIE MNA [id number] Memoria 15:30:00 15:30:00 Pre-Reg Neurology 00 l Tiffany Stephenann 2022-04-19 2022-04-19 Ambulatory MHIE MNA [id number] Memoria 15:30:00 15:30:00 Pre-Reg Neurology 00 l Tiffany Miguelangel 2022-04-19 2022-04-19 Outpatient MHIE MHIE [id number] Memoria 09:30:00 09:30:00 00 nadya Miguelangel 2022-04-19 2022-04-19 Outpatient DRE PortilloMISCHER [id number] 09:30:00 09:30:00 Anjel 00 Fernando 2022-04-10 2022-04-11 Outpatient MHIE MNA [id number] Memoria 14:15:00 05:59:59 Neurology 03 nadya Means 2022-04-10 2022-04-11 Outpatient MHIE MNA [id number] Memoria 14:15:00 05:59:59 Neurology 03 l Tiffany Means 2022-04-10 2022-04-10 Outpatient DRE Portillo MARK [id number] 08:15:00 23:59:59 Anejl 03 Fernando 2022-04-10 2022-04-10 Outpatient MHIE MHIE [id number] Memoria 08:15:00 08:15:00 03 nadya Means 2022-03-23 2022-03-23 [facility] 1.2.840.114 [id number] Univers 11:14:01 23:59:00 Encounter Uyen RICHARDS 350.1.13.10 ity of [place] 4.2.7.2.[address] [facility] [id number] [facility] [address] 2022-03-23 2022-03-23 Outpatient R UYEN ESTES [facility] B [id number] Univers 11:13:22 11:13:22 UYEN ESTES itFormerly [facility] 2022-03-23 2022-03-23 [place] [id number] Univers 11:13:22 11:13:22 Encounter Uyen RICHARDS 350.1.13.10 ity of [place] 4.2.7.2.[address] [facility] [id number] [facility] [address] 2022-03-23 2022-03-23 [facility] 1.2.840.11 [id number] Univers 00:00:00 00:00:00 Uyen VAZQUEZ 350.1.13.10 it y of WOMEN'S 4.2.7.2.686 [facility] [id number] [facility] [address] 2022-03-03 2022-03-03 Outpatient R UYEN ESTES [facility] B [id number] Univers 00:00:00 00:00:00 FELIPEUYEN STEWARD rigo [facility] 2022-03-01 2022-03-01 Telephone Nelly [facility] 1.2.840.114 [id number] Univers 00:00:00 00:00:00 Criselda VAZQUEZ 350.1.13.10 it y of PEDIATRIC 4.2.7.2.686 [facility] [id number] [address] 2022-02-28 2022-02-28 Outpatient R UYEN ESTES [facility] B [id number] Univers 13:30:00 14:11:09 FELIPEUYEN STEWARD rigo [facility] 2022-02-28 2022-02-28 [facility] 1.2.840.114 [id number] Univers 13:30:00 14:11:09 Visit Uyen VAZQUEZ 350.1.13.10 it y of WOMEN'S 4.2.7.2.686 [facility] [id number] [address] 2022-02-24 2022-02-25 Outpatient nullFlavo MNA [id number] Memoria 20:00:00 04:59:59 r Neurology 02 nadya Hornitosrose Stephenann 2022-02-24 2022-02-25 Outpatient nullFlavo MNA [id number] Memoria 20:00:00 04:59:59 r Neurology 02 l Tiffany Means 2022-02-24 2022-02-24 Outpatient DRE PortilloSCHNYDIA [id number] 15:00:00 23:59:59 Ajnel Narendra Fernando 2022-02-24 2022-02-24 Ambulatory nullFlavo MNA [id number] Memoria 21:15:00 21:15:00 Pre-Reg r Neurology 01 nadya Means 2022-02-24 2022-02-24 Ambulatory nullFlavo MNA [id number] Memoria 21:15:00 21:15:00 Pre-Reg r Neurology 01 l Tiffany Means 2022-02-24 2022-02-24 Outpatient MHIE MHIE [id number] Memoria 16:15:00 16:15:00 01 nadya Means 2022-02-24 2022-02-24 [id number] 16:15:00 16:15:00 Anjel Aries King 2022-02-24 2022-02-24 Outpatient SERJIO BASSETT [id number] Memoria 15:00:00 15:00:00 02 nadya Means 2022-02-23 2022-02-23 Outpatient R IGLESIA [facility] [id number] Univers 15:30:00 15:30:00 itFormerly [facility] 2022-02-23 2022-02-23 Outpatient R IGLESIA [facility] [id number] Univers 15:30:00 15:30:00 [id number] [facility] 2022-02-01 2022-02-01 Outpatient R TAYLOR [facility] [id number] Univers 07:42:24 23:59:00 ROLDAN [facility] 2022-02-01 2022-02-01 [facility] 1.2.840.114 [id number] Univers 07:42:24 23:59:00 Encounter Roldan RICHARDS 350.1.13.10 [facility] 4.2.7.2.[address] [facility] [id number] [facility] [address] 2021-10-05 2021-10-05 [facility], 1.2.840.1 [id number] Methodi 15:10:52 23:59:00 Encounter Raymond [id number] 3.430.2.7 Hospit a .3.948699 l .8 2021-10-05 2021-10-05 [facility], 1.2.840.1 [id number] Methodi 15:10:38 23:59:00 Encounter Raymond [id number] 3.430.2.7 Hospit a .3.530018 l .8 2021-10-05 2021-10-05 Travel 1.2.840.1 [id number] Methodi 00:00:00 00:00:[id number] 3.430.2.7 0.2.7.3.698 Ho spita .3.555612 084.8 l .8 2021-09-19 2021-09-19 Travel 1.2.840.1 [id number] [id number] Methodi 00:00:00 00:00:[address] 3.430.2.7 0.2.7.3.698 Ho spita .3.433354 084.8 l .8 2021-09-19 2021-09-19 Transcribe Anu, 1.2.840.1 [id number] Methodi 00:00:00 00:00:00 Orders Raymond [id number] 3.430.2.7 Hospit a .3.591370 l .8 2020-09-23 2020-09-23 Outpatient DMG DMG [id number] [facility] 08:00:00 08:00:00 0506 Medica l Group Results This patient has no known results.
[2022-12-24 08:17] LABS: Absolute Lymphocytes (CBC) 0.7 K/uL (0.7-4.9); Hematocrit 42.9 % (36.0-45.0); Lymphocytes % 4.6 % (15.3-44.8); MCV 91.2 fL (80-100); MPV 8.4 fL (7.6-11.3); Platelets 225 thou/uL (152-406); RBC Red Blood Cell Count 4.71 M/uL (3.86-4.86)
[2022-12-24] MEDS ORDERED: NA CHLORIDE 0.9% 1,000 ML ONE ×3 (08:24→09:58)
[2022-12-24] MEDS ORDERED: IPRATROPIUM BROM 0.5MG/2.5ML ONE (08:24)
[2022-12-24] MEDS ORDERED: ALBUTEROL 2.5 MG/3 ML NEB SOL ONE (08:24)
[2022-12-24] MEDS ORDERED: METHYLPREDNISOLONE 125 MG INJ ONE (08:24)
[2022-12-24 08:37] LABS: Albumin 2.9 g/dL (3.4-5.0); Bilirubin Direct 0.4 mg/dL (0-0.2); Bilirubin Total 1.4 mg/dL (0.2-1.0); Magnesium 1.8 mg/dL (1.6-2.4); Potassium 4.1 mEq/L (3.5-5.1); Protein, Total 6.9 g/dL (6.4-8.2)
[2022-12-24 08:40] LABS: Troponin High Sensitivity 59.9 pg/mL (<58.9)
[2022-12-24 08:46] LABS: Protime INR 2.25
[2022-12-24 08:48] LABS: Platelet Estimate ADEQ; White Blood Cell Scan DIFF (OK)
[2022-12-24 08:49] LABS: Blood Morphology Comment NOT SEEN (NOT SEEN)
--- NOTE | 2022-12-24 09:25 | RAD REPORT ---
EXAM DESCRIPTION: CT - Chest For Pe Angio - 12/24/2022 9:05 am CLINICAL HISTORY: Chest pain COMPARISON: None. TECHNIQUE: Dynamically enhanced axial 3 mm thick images of the chest were obtained during administra tion of 100 mL Isovue 370 IV contrast. Coronal and oblique reconstruction images were generated and r eviewed. Exam utilizes a protocol for optimal evaluation of pulmonary arterial tree. Maximum intensity projections 3D imaging was utilized All CT scans are performed using dose optimization technique as appropriate and may include automated exposure control or mA/KV adjustment according to patient size. FINDINGS: A pulmonary embolus is not seen. A thoracic aortic aneurysm is not noted. A pleural effusion is not seen. A pericardial effusion is not seen. Right lower lobe consolidation IMPRESSION: Negative for a pulmonary embolism. Right lower lobe consolidation consistent pneumonia. This should be followed until it has cleared to help exclude post obstructive process/underlying mass
--- NOTE | 2022-12-24 09:53 | EDPHYS ---
Physician Documentation [facility] Name: Fannie Rodriguez Age: 67 yrs Sex: Female : 1955 Arrival Date: 12/24/2022 Time: 07:36 Bed 5 Private MD: ED Physician Simón Pierre HPI: 12/24 08:04 This 67 yrs old Female presents to ER via Ambulatory with complaints of Flank Pain, rt Shortness Of Breath. 08:04 . Patient presents with about 3 days of chills, right-sided chest pain radiating to the rt back. The patient developed dyspnea, worse with exertion as well as a fatigue since then. Denies other acute complaints at this time. Symptoms are moderate in severity, no other aggravating or alleviating factors.. Historical: - Allergies: :58 No Known Allergies; iw - Home Meds: 08:02 aspirin 81 mg Oral capsule daily [Active]; atorvastatin 40 mg oral tablet daily iw [Active]; celecoxib 200 mg Oral capsule every 12 hours [Active]; duloxetine 60 mg oral capsule,delayed release (e.c.) daily [Active]; famotidine 20 mg Oral tablet daily [Active]; hydroxychloroquine 200 mg oral tablet 2 times per day [Active]; kratom three times a day [Active]; latanoprost 0.005 % ophthalmic (eye) drops every evening [Active]; prednisone 5 mg Oral tablet daily [Active]; pregabalin 100 mg Oral capsule daily [Active]; ropinirole 2 mg oral tablet once [Active]; trazodone 100 mg Oral tablet 2 times per day [Active]; 08:07 aripiprazole 2 mg oral Tablet with Sensor and Strip daily [Active]; iw - PSHx: 07:58 Cholecystectomy; section; partial hysterectomy; iw - Immunization history:: Adult Immunizations up to date, Client reports receiving the 2nd dose of the Covid vaccine. - Social history:: Smoking status: Patient/guardian denies using tobacco, the patient reports quitting approximately 8 years ago. - Family history:: not pertinent. ROS: 08:04 Constitutional: Negative for fever, chills, and weight loss, Abdomen/GI: Negative for rt abdominal pain, nausea, vomiting, diarrhea, and constipation, MS/Extremity: Negative for injury and deformity, Skin: Negative for injury, rash, and discoloration, Neuro: Negative for headache, weakness, numbness, tingling, and seizure, Psych: Negative for depression, anxiety, suicide ideation, homicidal ideation, and hallucinations. 08:04 Constitutional: Positive for chills, malaise. 08:04 Cardiovascular: Positive for chest pain, Negative for edema. 08:04 Respiratory: Positive for cough, shortness of breath. 08:04 Back: Positive for pain at rest, Negative for injury or acute deformity. Exam: 08:04 Constitutional: This is a well developed, well nourished patient who is awake, alert, rt and in no acute distress. Head/Face: Normocephalic, atraumatic. Chest/axilla: Normal chest wall appearance and motion. Nontender with no deformity. No lesions are appreciated. Cardiovascular: Regular rate and rhythm with a normal S1 and S2. No gallops, murmurs, or rubs. Normal PMI, no JVD. No pulse deficits. Respiratory: Lungs have equal breath sounds bilaterally, clear to auscultation and percussion. No rales, rhonchi or wheezes noted. No increased work of breathing, no retractions or nasal flaring. Abdomen/GI: Soft, non-tender, with normal bowel sounds. No distension or tympany. No guarding or rebound. No evidence of tenderness throughout. Skin: Warm, dry with normal turgor. Normal color with no rashes, no lesions, and no evidence of cellulitis. MS/ Extremity: Pulses equal, no cyanosis. Neurovascular intact. Full, normal range of motion. Neuro: Awake and alert, GCS 15, oriented to person, place, time, and situation. Cranial nerves II-XII grossly intact. Motor strength 5/5 in all extremities. Sensory grossly intact. Cerebellar exam normal. Normal gait. Psych: Awake, alert, with orientation to person, place and time. Behavior, mood, and affect are within normal limits. 08:27 ECG was reviewed by the Attending Physician. rt Vital Signs: 07:50 BP 108 / 60; Pulse 119; Resp 20; Temp 97.9(O); Pulse Ox 96% on R/A; Weight 89.81 kg; vg1 Height 5 ft. 6 in. ; 08:34 BP 93 / 64; Pulse 100; Resp 20; Pulse Ox 98% on Nebulizer Mask; vg1 09:13 BP 87 / 52; Pulse 114; Resp 25; Pulse Ox 93% on R/A; vg1 09:15 BP 89 / 57; Pulse 112; Resp 19; Pulse Ox 97% on Nebulizer Mask; vg1 09:39 BP 92 / 58; Pulse 110; Resp 22; Pulse Ox 98% on Nebulizer Mask; vg1 10:30 BP 103 / 59; Pulse 116; Resp 25; Pulse Ox 94% on R/A; vg1 11:00 BP 106 / 56; Pulse 117; Resp 26; Pulse Ox 94% on R/A; vg1 12:00 BP 106 / 57; Pulse 117; Resp 28; Pulse Ox 94% on R/A; iw 13:00 BP 105 / 56; Pulse 115; Resp 23; Pulse Ox 94% on R/A; vg1 07:50 Body Mass Index 31.96 (89.81 kg, 167.64 cm) vg1 MDM: 07:42 Patient medically screened. rt 10:15 Differential diagnosis: Pulmonary embolism, pneumonia, pneumothorax. Data reviewed: rt vital signs, nurses notes. Consideration of Admission/Observation Patient was admitted/placed on observation. Management of patient was discussed with the following: Hospitalist: Agrees to admit. I considered the following discharge prescriptions or medication management in the emergency department Medications were administered in the Emergency Department. See MAR. Independent interpretation of the following test(s) in the Emergency Department CT Scan: My interpretation is Consolidation seen on interpretation of the CT scan images. Test considered but Not performed: X-ray: CT angiography was performed, x-rays not necessary. Care significantly affected by the following chronic conditions: Rheumatoid arthritis. Counseling: I had a detailed discussion with the patient and/or guardian regarding: the historical points, exam findings, and any diagnostic results supporting the discharge/admit diagnosis, lab results, radiology results, the need for further work-up and treatment in the hospital. Response to treatment: the patient's symptoms have markedly improved after treatment. ED course: Patient's initial presentation was thought to be due to a pulmonary embolism, initial thought was that presentation was not due to infectious etiology. Once CT scan revealed infectious etiology, antibiotics were given, fluids were increased to get up to 30 cc/kg. Patient to be admitted for further care. 12/24 07:50 Order name: Basic Metabolic Panel; Complete Time: 08:42 rt 12/24 07:50 Order name: CBC with Diff; Complete Time: 09:16 rt 12/24 07:50 Order name: LFT's; Complete Time: 08:42 rt 12/24 07:50 Order name: Magnesium; Complete Time: 08:42 rt 08 07:50 Order name: NT PRO-BNP; Complete Time: 08:42 rt 08 07:50 Order name: Troponin HS; Complete Time: 08:42 rt 08 07:50 Order name: Blood Culture Adult (2) rt 12/24 07:50 Order name: Lactate w/ 2H reflex if indic.; Complete Time: 08:42 rt 08 07:50 Order name: Protime (+inr); Complete Time: 09:16 rt 12/24 07:50 Order name: Ptt, Activated; Complete Time: 09:16 rt 12/24 07:57 Order name: COVID-19 SARS RT PCR; Complete Time: 09:22 rt 12/24 07:57 Order name: Influenza Screen (a \T\ B); Complete Time: 09:16 rt 12/24 07:57 Order name: RSV; Complete Time: 09:16 rt 12/24 08:49 Order name: Manual Differential; Complete Time: 09:16 EDMS 12/24 08:49 Order name: CBC Smear Scan; Complete Time: 09:16 EDMS 12/24 10:45 Order name: CBC with Automated Diff EDMS 12/24 10:45 Order name: CBC with Automated Diff EDMS 12/24 10:45 Order name: Comprehensive Metabolic Panel EDMS 12/24 10:45 Order name: Comprehensive Metabolic Panel EDMS 12/24 10:45 Order name: Magnesium EDMS 12/24 10:45 Order name: Magnesium EDMS 12/24 10:45 Order name: Phosphorus EDMS 12/24 10:45 Order name: Phosphorus EDMS 12/24 10:45 Order name: Protime (+INR) EDMS 12/24 10:45 Order name: Protime (+INR) EDMS 12/24 12:01 Order name: Lactate Sepsis 2 HR Follow-up; Complete Time: 12:16 EDMS 08 12:16 Order name: Procalcitonin; Complete Time: 12:16 EDMS 12/24 14:09 Order name: Troponin High Sensitivity EDMS 12/24 07:50 Order name: CT Chest For PE Angio; Complete Time: 09:26 rt 08 12:15 Order name: US; Complete Time: 12:16 EDMS 12/24 07:50 Order name: EKG; Complete Time: 07:51 rt 08 10:45 Order name: Heart Healthy EDMS 12/24 07:50 Order name: Cardiac monitoring; Complete Time: 08:34 rt 08 07:50 Order name: EKG - Nurse/Tech; Complete Time: 08:34 rt 12/24 07:50 Order name: IV Saline Lock; Complete Time: 08:34 rt 12/24 07:50 Order name: Labs collected and sent; Complete Time: 08:34 rt 12/24 07:50 Order name: O2 Per Protocol; Complete Time: 08:34 rt 12/24 07:50 Order name: O2 Sat Monitoring; Complete Time: 08:34 rt 12/24 07:50 Order name: Accucheck; Complete Time: 08:34 rt 08 07:50 Order name: IV Saline Lock - Large Bore; Complete Time: 08:34 rt 12/24 07:50 Order name: Vital Signs; Complete Time: 08:34 rt EC:27 Rate is 114 beats/min. Rhythm is regular, Normal Sinus Rhythm with No ectopy. QRS [place] rt is Normal. MO interval is normal. QRS interval is normal. QT interval is normal. No Q waves. T waves are Normal. No ST changes noted. Interpreted by me. Administered Medications: 08:22 Drug: NS 0.9% IV 1000 ml Route: IV; Rate: 1 bolus; Site: left antecubital; vg1 09:39 Follow up: IV Status: Completed infusion; IV Intake: 1000ml vg1 08:22 Drug: MethylPrednisoLONE IVP 125 mg Route: IVP; Site: left antecubital; vg1 09:39 Follow up: Response: No adverse reaction vg1 08:30 Drug: DuoNeb Nebulize (3:1) (2.5 mg - 0.5 mg) 3 ml Route: Nebulizer; vg1 10:32 Follow up: Response: No adverse reaction; No change in condition vg1 09:35 Drug: NS 0.9% IV 1000 ml Route: IV; Rate: 1 bolus; Site: left antecubital; vg1 11:14 Follow up: IV Status: Completed infusion; IV Intake: 1000ml vg1 09:58 Drug: Cefepime IVPB 2 grams Route: IVPB; Rate: 200 ml/hr; Infused Over: 30 mins; Site: vg1 left antecubital; 10:32 Follow up: IV Status: Completed infusion; IV Intake: 100ml vg1 10:40 Drug: vancoMYCIN IVPB 1 grams Route: IVPB; Infused Over: 2 hrs; Site: left antecubital; vg1 12:45 Follow up: IV Status: Completed infusion; IV Intake: 250ml vg1 11:14 Drug: NS 0.9% IV 700 ml Route: IV; Rate: bolus; Site: left antecubital; vg1 12:45 Follow up: IV Status: Completed infusion; IV Intake: 700ml iw Disposition Summary: 12/24/22 09:53 Hospitalization Ordered Hospitalization Status: Inpatient Admission rt Provider: Nomi Dangelo rt Condition: Fair rt Problem: new rt Symptoms: have improved rt Bed/Room Type: Standard rt Location: Intensive Care Unit(12/24/22 13:40) [facility] Room Assignment: 2-(12/24/22 13:40) [facility] Diagnosis - Community-acquired pneumonia rt - Severe sepsis with septic shock rt Forms: - Medication Reconciliation Form rt - SBAR form rt Critical care time excluding procedures: 10:15 Critical care time: Bedside Care: 30 minutes, Consultation: 10 minutes. Total time: 40 rt minutes Signatures: Dispatcher [employer] Marita Easley RN RN José Miguel Kaur RN RN ja1 Savannah Hernandez Victoria RN RN vg1 Simón Pierre MD MD rt Corrections: (The following items were deleted from the chart) 10:45 09:53 Telemetry/MedSurg (Inpatient) rt eb 10:45 09:53 rt eb 13:40 10:45 Telemetry/MedSurg (Inpatient) eb ja 13:40 10:45 eb 1
--- NOTE | 2022-12-24 09:53 | ER ---
Nurse's Notes [facility] Name: Fannie Rodriguez Age: 67 yrs Sex: Female : 1955 Arrival Date: 12/24/2022 Time: 07:36 Bed 5 Private MD: Diagnosis: Community-acquired pneumonia;Severe sepsis with septic shock Presentation: 12/24 07:44 Chief complaint: Patient states: started with chills Kel night and pain along right iw flank and pain under right ribs, now having SOB on exertion and low energy. Coronavirus screen: Client presents with at least one sign or symptom that may indicate coronavirus-19. Ebola Screen: Patient negative for fever greater than or equal to 101.5 degrees Fahrenheit, and additional compatible Ebola Virus Disease symptoms Patient denies exposure to infectious person. Patient denies travel to an Ebola-affected area in the 21 days before illness onset. No symptoms or risks identified at this time. Initial Sepsis Screen: Does the patient meet any 2 criteria? No. Patient's initial sepsis screen is negative. Does the patient have a suspected source of infection? No. Patient's initial sepsis screen is negative. Risk Assessment: Do you want to hurt yourself or someone else? Patient reports no desire to harm self or others. Onset of symptoms was December 22, 2022. 07:44 Method Of Arrival: Ambulatory iw 07:44 Acuity: BECKY 3 iw Historical: - Allergies: 07:58 No Known Allergies; iw - Home Meds: 08:02 aspirin 81 mg Oral capsule daily [Active]; atorvastatin 40 mg oral tablet daily iw [Active]; celecoxib 200 mg Oral capsule every 12 hours [Active]; duloxetine 60 mg oral capsule,delayed release (e.c.) daily [Active]; famotidine 20 mg Oral tablet daily [Active]; hydroxychloroquine 200 mg oral tablet 2 times per day [Active]; kratom three times a day [Active]; latanoprost 0.005 % ophthalmic (eye) drops every evening [Active]; prednisone 5 mg Oral tablet daily [Active]; pregabalin 100 mg Oral capsule daily [Active]; ropinirole 2 mg oral tablet once [Active]; trazodone 100 mg Oral tablet 2 times per day [Active]; 08:07 aripiprazole 2 mg oral Tablet with Sensor and Strip daily [Active]; iw - PSHx: 07:58 Cholecystectomy; section; partial hysterectomy; iw - Immunization history:: Adult Immunizations up to date, Client reports receiving the 2nd dose of the Covid vaccine. - Social history:: Smoking status: Patient/guardian denies using tobacco, the patient reports quitting approximately 8 years ago. - Family history:: not pertinent. Screenin:45 [facility] ED Fall Risk Assessment (Adult) History of falling in the last 3 months, vg1 including since admission No falls in past 3 months (0 pts). Abuse screen: Denies threats or abuse. Denies injuries from another. Nutritional screening: No deficits noted. Tuberculosis screening: No symptoms or risk factors identified. Assessment: 07:45 General: Appears in no apparent distress. uncomfortable, Behavior is cooperative, vg1 anxious. Pain: Complains of pain in right lateral anterior chest and right breast Pain currently is 7 out of 10 on a pain scale. Pain began 2-3 days ago. Neuro: Level of Consciousness is awake, alert, obeys commands, Oriented to person, place, time, situation. Cardiovascular: Patient's skin is warm and dry. Rhythm is sinus tachycardia. Respiratory: Airway is patent Respiratory effort is even, labored, Breath sounds with crackles in right posterior upper lobe and right posterior middle lobe. GI: Reports nausea. : No signs and/or symptoms were reported regarding the genitourinary system. EENT: No signs and/or symptoms were reported regarding the EENT system. Derm: Skin is pink, warm \T\ dry. Musculoskeletal: Circulation, motion, and sensation intact. 09:24 Reassessment: Patient appears in no apparent distress at this time. Patient and/or vg1 family updated on plan of care and expected duration. Pain level reassessed. Patient is alert, oriented x 3, equal unlabored respirations, skin warm/dry/pink. Provider notified of vitals. 09:39 Reassessment: Patient appears in no apparent distress at this time. No changes from vg1 previously documented assessment. Patient and/or family updated on plan of care and expected duration. Pain level reassessed. Patient is alert, oriented x 3, equal unlabored respirations, skin warm/dry/pink. 11:33 Reassessment: Patient appears in no apparent distress at this time. No changes from vg1 previously documented assessment. Patient and/or family updated on plan of care and expected duration. Pain level reassessed. Patient is alert, oriented x 3, equal unlabored respirations, skin warm/dry/pink. 11:51 Reassessment: phone technician is at patient bedside. db 12:25 Reassessment: Patient appears in no apparent distress at this time. No changes from iw previously documented assessment. Patient and/or family updated on plan of care and expected duration. Pain level reassessed. Patient is alert, oriented x 3, equal unlabored respirations, skin warm/dry/pink. Vital Signs: 07:50 BP 108 / 60; Pulse 119; Resp 20; Temp 97.9(O); Pulse Ox 96% on R/A; Weight 89.81 kg; vg1 Height 5 ft. 6 in. ; 08:34 BP 93 / 64; Pulse 100; Resp 20; Pulse Ox 98% on Nebulizer Mask; vg1 09:13 BP 87 / 52; Pulse 114; Resp 25; Pulse Ox 93% on R/A; vg1 09:15 BP 89 / 57; Pulse 112; Resp 19; Pulse Ox 97% on Nebulizer Mask; vg1 09:39 BP 92 / 58; Pulse 110; Resp 22; Pulse Ox 98% on Nebulizer Mask; vg1 10:30 BP 103 / 59; Pulse 116; Resp 25; Pulse Ox 94% on R/A; vg1 11:00 BP 106 / 56; Pulse 117; Resp 26; Pulse Ox 94% on R/A; vg1 12:00 BP 106 / 57; Pulse 117; Resp 28; Pulse Ox 94% on R/A; iw 13:00 BP 105 / 56; Pulse 115; Resp 23; Pulse Ox 94% on R/A; vg1 07:50 Body Mass Index 31.96 (89.81 kg, 167.64 cm) vg1 ED Course: 07:38 Patient arrived in ED. im 07:40 Simón Pierre MD is Attending Physician. rt 07:40 Latonya Persaud, MARY is Primary Nurse. vg1 07:45 Patient has correct armband on for positive identification. Placed in gown. Bed in low vg1 position. Call light in reach. Side rails up X 1. Adult w/ patient. Client placed on continuous cardiac and pulse oximetry monitoring. NIBP monitoring applied. 07:48 Triage completed. iw 07:48 Arm band placed on. iw 08:03 Inserted saline lock: 20 gauge in left antecubital area, using aseptic technique. vg1 08:03 Initial lab(s) drawn, by me, sent to lab. First set of blood cultures drawn by me. vg1 09:06 CT Chest For PE Angio In Process Unspecified. EDMS 09:30 Second set of blood cultures drawn by me. vg1 09:52 Nomi Dangelo MD is Hospitalizing Provider. rt 14:17 No provider procedures requiring assistance completed. Patient admitted, IV remains in vg1 place. Administered Medications: 08:22 Drug: NS 0.9% IV 1000 ml Route: IV; Rate: 1 bolus; Site: left antecubital; vg1 09:39 Follow up: IV Status: Completed infusion; IV Intake: 1000ml vg1 08:22 Drug: MethylPrednisoLONE IVP 125 mg Route: IVP; Site: left antecubital; vg1 09:39 Follow up: Response: No adverse reaction vg1 08:30 Drug: DuoNeb Nebulize (3:1) (2.5 mg - 0.5 mg) 3 ml Route: Nebulizer; vg1 10:32 Follow up: Response: No adverse reaction; No change in condition vg1 09:35 Drug: NS 0.9% IV 1000 ml Route: IV; Rate: 1 bolus; Site: left antecubital; vg1 11:14 Follow up: IV Status: Completed infusion; IV Intake: 1000ml vg1 09:58 Drug: Cefepime IVPB 2 grams Route: IVPB; Rate: 200 ml/hr; Infused Over: 30 mins; Site: vg1 left antecubital; 10:32 Follow up: IV Status: Completed infusion; IV Intake: 100ml vg1 10:40 Drug: vancoMYCIN IVPB 1 grams Route: IVPB; Infused Over: 2 hrs; Site: left antecubital; vg1 12:45 Follow up: IV Status: Completed infusion; IV Intake: 250ml vg1 11:14 Drug: NS 0.9% IV 700 ml Route: IV; Rate: bolus; Site: left antecubital; vg1 12:45 Follow up: IV Status: Completed infusion; IV Intake: 700ml iw Medication: 07:45 VIS not applicable for this client. vg1 Intake: 09:39 IV: 1000ml; Total: 1000ml. vg1 10:32 IV: 100ml; Total: 1100ml. vg1 11:14 IV: 1000ml; Total: 2100ml. vg1 12:45 IV: 700ml; Total: 2800ml. iw 12:45 IV: 250ml; Total: 3050ml. vg1 Outcome: 09:53 Decision to Hospitalize by Provider. rt 14:17 Admitted to ICU accompanied by nurse, accompanied by tech, via stretcher, room 2, with vg1 chart, Report called to receiving RN 14:17 Condition: good 14:17 Instructed on the need for admit. 14:17 Patient left the ED. vg1 Signatures: Dispatcher [employer] Mariat Easley RN RN iw Garcia, Victoria RN RN vg1 Nury Forde, RN Simón Del Valle MD MD rt Neha Kauffman im
[2022-12-24] MEDS ORDERED: NA CHLORIDE 0.9% 250 ML ONE (09:57)
[2022-12-24] MEDS ORDERED: VANCOMYCIN 1 GM/VIAL ONE (09:57)
[2022-12-24] MEDS ORDERED: CEFEPIME 2 GM VIAL ONE (09:58)
[2022-12-24] MEDS ORDERED: NA CHLORIDE 0.9% 100 ML ONE (09:58)
--- NOTE | 2022-12-24 10:06 | P.HP ---
Certification for Inpatient Patient admitted to: Inpatient With expected LOS: >2 Midnights Patient will require the following post-hospital care: None Practitioner: I am a practitioner with admitting privileges, knowledge of patient current condition, hospital course, and medical plan of care. Services: Services provided to patient in accordance with Admission requirements found in Title 42 Section 412.3 of the Code of Federal Regulations Patient History Date of Service: 12/24/22 Primary Care Provider: Dr. Brennan Reason for admission: Septic Shock History of Present Illness: Ms. Fannie Rodriguez is a pleasant 67 year old female who has a past medical history of rheumatoid arthritis, dyslipidemia, restless leg syndrome, depres kassandra, and peripheral neuropathy who presents to the [facility] Emergency Department for chills, shortness of breath, cough, and right- sided posttussive chest pain. She reports that, over the last 2-3 days, she has been experiencing progressively worsening chills, shortness of breath, cough, and posttussive chest pain. She grades her symptoms a 4/10 in severity. She has tried taking acetaminophen and ibuprofen, without alleviation of her symptoms. She denies any obvious inciting or alleviating factors. On review of systems, she reports nausea and diarrhea, but denies any fevers, headaches, dizziness, syncope, palpitations, wheezing, abdominal pain, vomiting, constipation, hematochezia, melena, dysuria, hematuria, myalgia, or any other symptoms. She presented to the Emergency Department for further evaluation. Upon presentation, her vital signs were notable for a heart rate up to 119 bpm, a respiratory rate up to 25 breaths/min, and a blood pressure as low as 87/52. Her laboratory studies were notable for a WBC count of 14,700, an INR of 2.25, a creatinine of 2.16, a lactic acid of 8.9, and an initial troponin of 59.9. Blood cultures x 2 were obtained. EKG was without STEMI criteria. Her CT chest angiogram revealed, "negative for a pulmonary embolism. Right lower lobe consolidation consistent pneumonia. This should be followed until it has cleared to help exclude post obstructive process/underlying mass." In the Emergency Department, she was given methylprednisolone, Duo-Nebs, and 2.7 L Normal Saline. She was admitted to the General Internal Medicine service for further evaluation. Allergies No Known Allergies Allergy (Unverified 12/24/22 10:47) Home medications list reviewed: Yes Home Medications: Alpha Lipoic Acid 600 mg PO BID 12/24/22 Aripiprazole [Abilify] 2 mg PO BEDTIME 12/24/22 Aspirin [Aspirin EC 81 MG] 81 mg PO DAILY 12/24/22 Atorvastatin Calcium 40 mg PO BEDTIME 12/24/22 Celecoxib 200 mg PO BID 12/24/22 Duloxetine HCl 60 mg PO DAILY 12/24/22 Famotidine 20 mg PO DAILY 12/24/22 Hydroxychloroquine Sulfate 200 mg PO BID 12/24/22 Pregabalin 100 mg PO BEDTIME 12/24/22 Ropinirole HCl 2 mg PO BEDTIME 12/24/22 Trazodone HCl 100 mg PO BEDTIME 12/24/22 predniSONE [Deltasone] 5 mg PO DAILY 12/24/22 - Past Medical/Surgical History Diabetic: No -: Rheumatoid Arthritis -: Hyperlipidemia -: Depression -: Restless Leg Syndrome -: Peripheral Neuropathy -: MGUS -: Cholecystectomy -: -: Hysterectomy - Family History Family History: Reviewed- Non-Contributory - Social History Smoking Status: Former smoker (44 pack years) Alcohol use: No CD- Drugs: No Review of Systems General: Chills Eyes: Unremarkable ENT: Unremarkable Respiratory: Cough, Shortness of Breath Cardiovascular: Chest Pain (right-sided, post-tussive) Gastrointestinal: Nausea, Diarrhea Genitourinary: Unremarkable Musculoskeletal: Unremarkable Integumentary: Unremarkable Neurological: Unremarkable Lymphatics: Unremarkable Physical Examination - Vital Signs Temperature: 97.9 F Blood Pressure: 92/58 Pulse: 110 Respirations: 22 Pulse Ox (%): 98 - Physical Exam General: Alert, In no apparent distress, Oriented x3 HEENT: Atraumatic, Mucous membr. moist/pink, Sclerae nonicteric Neck: JVD not distended Respiratory: Diminished, Rhonchi/gurgles (bibasilar) Cardiovascular: No edema, Regular rate/rhythm, Normal S1 S2, No gallops, No rubs, No murmurs Gastrointestinal: Normal bowel sounds, Soft and benign, Non-distended, No tenderness, No rebound, No guarding Musculoskeletal: No clubbing Integumentary: No rashes Neurological: Normal speech, Normal affect - Studies Laboratory Data (last 24 hrs) 12/24/22 12/24/22 12/24/22 08:03 08:03 08:03 WBC 14.70 H Hgb 13.9 Hct 42.9 Plt Count 225 PT 24.7 H INR 2.25 APTT 88.2 H Sodium 135 L Potassium 4.1 BUN 44 H Creatinine 2.16 H Glucose 110 H Magnesium 1.8 Total Bilirubin 1.4 H AST 18 ALT 32 Alkaline Phosphatase 74 Microbiology Data (last 24 hrs): 12/24/22 08:27 Nasopharnyx Respiratory Syncytial Virus Ag Scrn - Final 12/24/22 08:27 Nasopharnyx Influenza Type A Antigen Screen - Final 12/24/22 08:27 Nasopharnyx Influenza Type B Antigen Screen - Final Assessment and Plan - Plan # Septic Shock likely secondary to Community-Acquired Pneumonia She met SIRS criteria based on HR > 90 bpm, RR > 20 breaths/min, WBC > 12,000, and the suspected source is pneumonia. Severe sepsis is suspected due to concern for tissue hypoperfusion/organ dysfunction based on hypotension (SBP < 90), creatinine >2.0 mg/dL (without ESRD), coagulopathy (INR > 1.5), and lactic acid > 2 mmol/L. Septic shock is suspected due to initial lactate > 4 mmol/L and SBP < 90 mmHg. - CT chest angiogram = "negative for a pulmonary embolism. Right lower lobe consolidation consistent pneumonia. This should be followed until it has cleared to help exclude post obstructive process/underlying mass." - Advised on the possibility for an underlying pulmonary malignancy. She is advised to follow-up with pulmonology for further evaluation as an outpatient. She verbalized understanding and agreed to make this follow-up appointment - Consulted Pulmonogy - recommendations appreciated - Sepsis order set was initiated - Initial Lactate was 8.9, trend - Blood cultures drawn before antibiotics were given - Broad spectrum antibiotics started: Vancomycin + Cefepime - In regards to fluids: - 30 mL/kg of IV Normal Saline was given based on patient's actual body weight - Sepsis reassessment completed at 11:15 AM on 12/24/2022 # KDIGO Stage II Acute Kidney Injury likely due to above - Nephrology consulted and spoke with Dr. Paredes - recommendations appreciated - Recommends starting 1/2 NS with 75 mEq bicarbonate @ 75 mL/hr - Creatinine = 2.16 (creatinine was 0.8 on 12/13/2022) - Urinalysis = pending - Renal ultrasound = pending - Monitor creatinine and urine output - Renally dose medications # Suspect Demand Ischemia (Type II Non-ST Segment Elevation Myocardial Infar ction) # Dyslipidemia - Evaluation thus far: - EKG: without STEMI criteria, trend - Serial troponin: 59.9, trend - Ordered transthoracic echocardiogram - CT chest angiogram = "negative for a pulmonary embolism. Right lower lobe consolidation consistent pneumonia. This should be followed until it has cleared to help exclude post obstructive process/underlying mass." - Management plan: - Consult Cardiology - recommendations appreciated - Continue home aspirin, atorvastatin - Defer beta-maria l, APOLLO-inhibitor/ARB given concern for septic shock # Rheumatoid Arthritis - Continue home prednisone to prevent withdrawal - Hold home hydroxychloroquine given concern for septic shock # Depression - Hold home aripiprazole for now # Peripheral Neuropathy - Hold home duloxetine, pregabalin for now # Restless Leg Syndrome - Hold home ropinirole for now Ms. Rodriguez is a patient of Dr. Brennan. I am covering Dr. Brennan's service today and he will return tomorrow. She will be transferred to Dr. Brennan's service at 06:00 AM on 12/25/2022. I have informed Dr. Brennan of her hospitalization. Nomi Dangelo M.D. - Advance Directives Does patient have a Living Will: No Does patient have a Durable POA for Healthcare: No
[2022-12-24] MEDS ORDERED: NACHLORIDE 0.45% 1,000 ML IV SCH (12:00)
--- NOTE | 2022-12-24 12:14 | RAD REPORT ---
EXAM DESCRIPTION: US - Renal Ultrasound-Complete - 12/24/2022 12:00 pm CLINICAL HISTORY: Acute renal insufficiency COMPARISON: None FINDINGS: The right kidney measures 11 cm with a normal echotexture. The left kidney measures 11 cm with a normal echotexture. Hydronephrosis is not seen. No gross abnormality of bladder IMPRESSION: Unremarkable renal ultrasound.
--- NOTE | 2022-12-24 16:06 | P.PN ---
Brief Renal note (full consult to follow by [facility] team) Stage II FREDDY in the setting of hypotension, sepsis, chronic NSAIDs use, other. Pt it appeals also received contrast with CTA study performed in the ER on admission so will have to monitor for ISAURA additionally. Pt reportedly did produce some urine in the ER. Given her critical illness will request guardado for accurate UOP monitoring. Pt has received sepsis protocol IVF per reports, will order maintenance IVF with sodium bicarb added to 1/2 NS given her bicarb deficit. She has elevated LA which is notably elevated and concerningly did rise despite initial improvement in MAP with intravascular volume. Cont to trend closely. If bicarb deficit worsens on repeat labs, check ABG to assess pH. Mynor Paredes MD, MISHA
[2022-12-24 16:49] LABS: Urine Bacteria <20 /HPF (<20); Urine Bilirubin NEGATIVE (Negative); Urine Blood Negative (Negative); Urine Clarity Clear (Clear); Urine Color Light-Yellow (Yellow); Urine Glucose NEGATIVE (Negative); Urine Mucus Slight /HPF (None Seen); Urine Protein TRACE (Negative); Urine RBC <5 /HPF (None Seen); Urine Urobilinogen Normal (Normal)
[2022-12-24] MEDS: NACHLORIDE 0.45% 1,000 ML with NA BICARB 8.4% 50 MEQ IV SCH ×2 (17:05)
[2022-12-24] MEDS: ATORVASTATIN 40 MG TAB PO SCH (20:28)
[2022-12-24] MEDS: TRAZODONE 50 MG TABLET PO SCH (20:28)
[2022-12-24] MEDS: ROPINIROLE HCL 1 MG TAB PO SCH (20:29)
[2022-12-24] MEDS: PREGABALIN 50 MG CAP PO SCH (20:29)
[2022-12-24] MEDS: ARIPIPRAZOLE 2 MG PO SCH (20:31)
[2022-12-24] MEDS ORDERED: CEFEPIME 1 GM in NA CHLORIDE 0.9% 100 ML IV SCH (21:00)
[2022-12-25] MEDS: NACHLORIDE 0.45% 1,000 ML with NA BICARB 8.4% 50 MEQ IV SCH ×2 (01:59)
[2022-12-25 04:45] LABS: Absolute Lymphocytes (CBC) 0.5 K/uL (0.7-4.9); Hematocrit 32.9 % (36.0-45.0); Lymphocytes % 2.6 % (15.3-44.8); MCV 88.7 fL (80-100); MPV 8.2 fL (7.6-11.3); Platelets 182 thou/uL (152-406)
[2022-12-25 04:49] LABS: Protime INR 1.73
[2022-12-25 05:03] LABS: Albumin 2.2 g/dL (3.4-5.0); Bilirubin Total 0.9 mg/dL (0.2-1.0); Magnesium 2.2 mg/dL (1.6-2.4); Protein, Total 5.6 g/dL (6.4-8.2)
[2022-12-25 05:05] LABS: Phosphorus 1.2 mg/dL (2.5-4.9)
[2022-12-25] MEDS: POTASS/SODIUM PHOSPHATE 1 PKT POWD.PACK PO SCH ×3 (08:45→10:00)
[2022-12-25] MEDS: ASPIRIN EC 81 MG TAB PO SCH (08:45)
[2022-12-25] MEDS: FAMOTIDINE 20 MG TAB PO SCH (08:45)
[2022-12-25] MEDS: VANCOMYCIN 1.5 GM in NA CHLORIDE 0.9% 500 ML IVPB SCH ×2 (08:46→09:08)
[2022-12-25] MEDS ORDERED: predniSONE 5 MG TAB PO SCH (09:00)
[2022-12-25] MEDS ORDERED: HYDROCORTISONE SUC 100 MG INJ IV SCH (09:00)
[2022-12-25] MEDS ORDERED: Meropenem 1,000 MG in NA CHLORIDE 0.9% 100 ML IV SCH (09:00)
[2022-12-25] MEDS: CEFTRIAXONE 2,000 MG in NA CHLORIDE 0.9% 100 ML IV SCH (09:10)
[2022-12-25] MEDS ORDERED: NA CHLORIDE 0.9% 1,000 ML IV ONE (11:12)
--- NOTE | 2022-12-25 11:47 | P.CNS ---
Date of Consult: 12/25/22 Primary Care Provider: Dr. Brennan Chief Complaint: Septic Shock History of Present Illness: Patient is 67 years of age and recent diagnosis of rheumatoid arthritis admitted with acute onset of fever chills shortness of breath chest discomfort admitted with septic shock sepsis suspected from pneumococcal pneumonia just recently started on prednisone got worse of the past 2 to 3 days Allergies No Known Allergies Allergy (Unverified 12/24/22 10:47) Home Medications: Alpha Lipoic Acid 600 mg PO BID 12/24/22 Aripiprazole [Abilify] 2 mg PO BEDTIME 12/24/22 Aspirin [Aspirin EC 81 MG] 81 mg PO DAILY 12/24/22 Atorvastatin Calcium 40 mg PO BEDTIME 12/24/22 Celecoxib 200 mg PO BID 12/24/22 Duloxetine HCl 60 mg PO DAILY 12/24/22 Famotidine 20 mg PO DAILY 12/24/22 Hydroxychloroquine Sulfate 200 mg PO BID 12/24/22 Pregabalin 100 mg PO BEDTIME 12/24/22 Ropinirole HCl 2 mg PO BEDTIME 12/24/22 Trazodone HCl 100 mg PO BEDTIME 12/24/22 predniSONE [Deltasone] 5 mg PO DAILY 12/24/22 - Past Medical/Surgical History Diabetic: No -: Rheumatoid Arthritis -: Hyperlipidemia -: Depression -: Restless Leg Syndrome -: Peripheral Neuropathy -: MGUS -: Cholecystectomy -: -: Hysterectomy -: Left shoulder surgery -: Left knee surgery - Family History Father Medical History: Heart disease Mother Medical History: Cancer Brother Medical History: Cancer Sister Medical History: Heart disease, Diabetes, Cancer, Other (see notes) Notes: suicide - Social History Alcohol use: No CD- Drugs: No Caffeine use: Yes Place of Residence: Home Review of Systems 10-point ROS is otherwise unremarkable General: Weakness Respiratory: Cough, Shortness of Breath Physical Examination Temp Pulse Resp BP Pulse Ox 97.3 F 91 H 17 100/68 95 12/25/22 08:00 12/25/22 10:00 12/25/22 10:00 12/25/22 10:00 12/25/22 10:00 General: Alert, Oriented x3, Mild distress Respiratory: Crackles/rales (Bilateral crackles) Cardiovascular: No edema, Normal pulses Gastrointestinal: Normal bowel sounds, Soft and benign - Problems (1) Septic shock due to gram-positive bacteria Current Visit: Yes Status: Acute Plan: Patient is 67 years of age admitted with septic shock blood cultures are positive for alphahemolytic strep presumed streptococcal pneumonia as of consolidation on the CT scan continue with IV fluid boluses CT scan reviewed labs reviewed renal function is now normal white count is elevated continue with vancomycin patient changed to Rocephin which would have better gram-positive coverage is not at risk for resistant infections labs ordered
--- NOTE | 2022-12-25 13:03 | EKG ---
Test Date: 2022-12-24 Test Time: 08:19:20 Industrial Eng: VALERIO MEASUREMENT RESULTS: Intervals: Rate: 114 TX: 166 QRSD: 62 QT: 320 QTc: 441 [place]: P: 53 TX: 166 QRS: 82 T: 25 INTERPRETIVE STATEMENTS: Sinus tachycardia Otherwise normal ECG No previous ECG available for comparison Electronically Signed On 12-25-22 13:02:19 CDT by Priyank Denson
[2022-12-25] MEDS: Ringers Lactate 1,000 ML IV SCH ×3 (13:13→22:47)
--- NOTE | 2022-12-25 13:32 | P.CNS ---
Date of Consult: 12/25/22 Reason for Consult: FREDDY Requesting Physician: Nomi Dangelo Primary Care Provider: Dr. Brennan Chief Complaint: Septic Shock History of Present Illness: Ms. Fannie Rodriguez is a pleasant 67 year old female who has a past medical history of rheumatoid arthritis, dyslipidemia, restless leg syndrome, depression, and peripheral neuropathy who presents to the [facility] Emergency Department for chills, shortness of breath, cough, and right-sided posttussive chest pain. She reports that, over the last 2-3 days, she has been experiencing progressively worsening chills, shortness of breath, cough, and posttussive chest pain. She grades her symptoms a 4/10 in severity. She has tried taking acetaminophen and ibuprofen, without alleviation of her symptoms. She denies any obvious inciting or alleviating factors. On review of systems, she reports nausea and diarrhea, but denies any fevers, headaches, dizziness, syncope, palpitations, wheezing, abdominal pain, vomiting, constipation, hematochezia, melena, dysuria, hematuria, myalgia, or any other symptoms. She presented to the Emergency Department for further evaluation. Upon presentation, her vital signs were notable for a heart rate up to 119 bpm, a respiratory rate up to 25 breaths/min, and a blood pressure as low as 87/52. Her laboratory studies were notable for a WBC count of 14,700, an INR of 2.25, a creatinine of 2.16, a lactic acid of 8.9, and an initial troponin of 59.9. Blood cultures x 2 were obtained. EKG was without STEMI criteria. Her CT chest angiogram revealed, "negative for a pulmonary embolism. Right lower lobe consolidation consistent pneumonia. This should be followed until it has cleared to help exclude post obstructive process/underlying mass." In the Emergency Department, she was given methylprednisolone, Duo-Nebs, and 2.7 L Normal Saline. She was admitted to the General Internal Medicine service for further evaluation. 08:04 This 67 yrs old Female presents to ER via Ambulatory with complaints of Flank Pain, rt Shortness Of Breath. 08:04 . Patient presents with about 3 days of chills, right-sided chest pain radiating to the rt back. The patient developed dyspnea, worse with exertion as well as a fatigue since then. Denies other acute complaints at this time. Symptoms are moderate in severity, no other aggravating or alleviating factors. Anorexia. No constipation. Good urine output. Right rib pain. Allergies No Known Allergies Allergy (Unverified 12/24/22 10:47) Home medications list reviewed: Yes Home Medications: Alpha Lipoic Acid 600 mg PO BID 12/24/22 Aripiprazole [Abilify] 2 mg PO BEDTIME 12/24/22 Aspirin [Aspirin EC 81 MG] 81 mg PO DAILY 12/24/22 Atorvastatin Calcium 40 mg PO BEDTIME 12/24/22 Celecoxib 200 mg PO BID 12/24/22 Duloxetine HCl 60 mg PO DAILY 12/24/22 Famotidine 20 mg PO DAILY 12/24/22 Hydroxychloroquine Sulfate 200 mg PO BID 12/24/22 Pregabalin 100 mg PO BEDTIME 12/24/22 Ropinirole HCl 2 mg PO BEDTIME 12/24/22 Trazodone HCl 100 mg PO BEDTIME 12/24/22 predniSONE [Deltasone] 5 mg PO DAILY 12/24/22 - Past Medical/Surgical History Diabetic: No -: Rheumatoid Arthritis -: Hyperlipidemia -: Depression -: Restless Leg Syndrome -: Peripheral Neuropathy -: MGUS -: Cholecystectomy -: -: Hysterectomy -: Left shoulder surgery -: Left knee surgery - Family History Father Medical History: Heart disease Mother Medical History: Cancer Brother Medical History: Cancer Sister Medical History: Heart disease, Diabetes, Cancer, Other (see notes) Notes: suicide - Social History Alcohol use: No CD- Drugs: No Caffeine use: Yes Place of Residence: Home Review of Systems 10-point ROS is otherwise unremarkable General: Weakness, Malaise Physical Examination Temp Pulse Resp BP Pulse Ox 98.6 F 76 23 H 104/72 95 12/25/22 12:00 12/25/22 12:00 12/25/22 12:00 12/25/22 12:00 12/25/22 12:00 General: In no apparent distress, Oriented x3, Cooperative HEENT: Atraumatic Neck: Supple Respiratory: Normal air movement, Crackles/rales Cardiovascular: No edema, Regular rate/rhythm Gastrointestinal: Soft and benign, Non-distended Musculoskeletal: No clubbing, No contractures Integumentary: No rashes, No cyanosis Neurological: Normal speech Blood work reviewed in the chart. Imagings Data: EXAM DESCRIPTION: CT - Chest For Pe Angio - 12/24/2022 9:05 am CLINICAL HISTORY: Chest pain COMPARISON: None. TECHNIQUE: Dynamically enhanced axial 3 mm thick images of the chest were obtained during administration of 100 mL Isovue 370 IV contrast. Coronal and oblique reconstruction images were generated and reviewed. Exam utilizes a protocol for optimal evaluation of pulmonary arterial tree. Maximum intensity projections 3D imaging was utilized All CT scans are performed using dose optimization technique as appropriate and may include automated exposure control or mA/KV adjustment according to patient size. FINDINGS: A pulmonary embolus is not seen. A thoracic aortic aneurysm is not noted. A pleural effusion is not seen. A pericardial effusion is not seen. Right lower lobe consolidation IMPRESSION: Negative for a pulmonary embolism. Right lower lobe consolidation consistent pneumonia. This should be followed until it has cleared to help exclude post obstructive process/underlying mass EXAM DESCRIPTION: US - Renal Ultrasound-Complete - 12/24/2022 12:00 pm CLINICAL HISTORY: Acute renal insufficiency COMPARISON: None FINDINGS: The right kidney measures 11 cm with a normal echotexture. The left kidney measures 11 cm with a normal echotexture. Hydronephrosis is not seen. No gross abnormality of bladder IMPRESSION: Unremarkable renal ultrasound. Conclusions/Impression: Stage II FREDDY likely due to hypovolemia -No NSAIDs -Continue IVF with LR Metabolic Acidosis, improved -Discontinue IV bicarb Hypophosphatemia -Neutr-phos X1 Hypoalbuminemia -Encourage nutrition Anemia in chronic illness -Monitor H&H Case reviewed with Dr. Dangelo and Dr. Mulligan including the chart notes Thank you kindly for the consultation
[2022-12-25] MEDS ORDERED: POTASS/SODIUM PHOSPHATE 1 PKT POWD.PACK PO ONE (14:00)
--- NOTE | 2022-12-25 14:01 | ECHO ---
HEIGHT: 5 ft 6 in WEIGHT: 202 lb 9 oz DATE OF STUDY: 12/25/[address]: Nomi Dangelo MD 2-DIMENSIONAL: YES M.MODE: YES DOPPLER: YES COLOR FLOW: YES TDS: PORTABLE: YES DEFINITY: BUBBLE STUDY: DIAGNOSIS: ELEVATED TROPONIN CARDIAC HISTORY: CATHERIZATION: SURGERY: PROSTHETIC VALVE: PACEMAKER: MEASUREMENTS (cm) DIASTOLIC (NORMALS) SYSTOLIC (NORMALS) IVSd 0.9 (0.6-1.2) LA Diam 3.5 (1.9-4.0) LVEF 59% LVIDd 4.6 (3.5-5.7) LVIDs 3.2 (2.0-3.5) %FS 31% LVPWd 1.1 (0.6-1.2) Ao Diam 3.0 (2.0-3.7) 2 DIMENSIONAL ASSESSMENT: RIGHT ATRIUM: NORMAL LEFT ATRIUM: NORMAL RIGHT VENTRICLE: NORMAL LEFT VENTRICLE: NORMAL TRICUSPID VALVE: MILD TRICUSPID REGURGITATION MITRAL VALVE: MILD MITRAL REGURGITATION PULMONIC VALVE: NORMAL AORTIC VALVE: NORMAL PERICARDIAL EFFUSION: NONE AORTIC ROOT: NORMAL LEFT VENTRICULAR WALL MOTION: NORMAL DOPPLER/COLOR FLOW: MILD TRICUSPID REGURGITATION. MILD MITRAL REGURGITATION COMMENTS: 1. NORMAL LEFT VENTRICULAR EJECTION FRACTION 55-60% WITH NORMAL WALL MOTION 2. GRADE I DIASTOLIC DYSFUNCTION 3. MILD MITRAL REGURGITATION 4. MILD TRICUSPID REGURGITATION TECHNOLOGIST: PARRISH JOSHI
--- NOTE | 2022-12-25 17:58 | P.PN ---
Subjective Date of Service: 12/25/22 Primary Care Provider: Dr. Brennan Chief Complaint: Septic Shock Subjective: No new changes BLAINE CAME WITH ONE SIDE CHEST PAIN THAT WAS PLEURITIC HAD DYSPNEA SO SHE REPORTED TO ER. SHE HAS PNEUMONIALOBAR , BACTERIAL WITH HIGH WBC COUNT. SHE WAS GIVEN VANCOMYCIN AND CEFEPIM BY PA. LATER SHE GREW GRAMPOS COCCI IN CHAINS AND PAIRS IN BLOOD SUGGESTIVE OF STREP PNEUMONIA. WE KEPT HER ON VANCOMYCIN I GAVE HER STRESS DOSE OF STEROIDS HER BP WAS LOW NORMAL AND SHE IS ON ORAL STEROIDS AT HOME FOR RA. Review of Systems 10-point ROS is otherwise unremarkable General: Weakness, Malaise Physical Examination - Vital Signs Temperature: 98.2 F Blood Pressure: 115/69 Pulse: 91 Respirations: 29 Pulse Ox (%): 95 - Physical Exam General: Oriented x3, Mild distress HEENT: Atraumatic, PERRLA, EOMI Neck: Supple, JVD not distended Respiratory: Clear to auscultation bilaterally, Normal air movement Cardiovascular: Regular rate/rhythm, Normal S1 S2 Gastrointestinal: Normal bowel sounds, No tenderness Musculoskeletal: No tenderness Integumentary: No rashes Neurological: Normal speech, Normal tone, Normal affect Lymphatics: No axilla or inguinal lymphadenopathy - Studies Medications List Reviewed: Yes Assessment And Plan - Current Problems (Diagnosis) (1) Bacteremia due to Streptococcus pneumoniae Current Visit: Yes Status: Acute Plan: BC2 POS IV VANCOMYCIN IV FLUIDS. STEROIDS STRESS DOSE SHE IS HYPOTENSE (2) Septic shock due to gram-positive bacteria Current Visit: Yes Status: Acute (3) Immunocompromised Current Visit: Yes Status: Chronic Plan: HAS RA ON IMMUNOSUPPRESSIVE MEDS (4) Immune deficiency disorder Current Visit: Yes Status: Acute (5) SIRS (systemic inflammatory response syndrome) Current Visit: Yes Status: Acute Plan: ABOVE IV , ABX, STEROIDS PROGNOSIS GUARDED
--- NOTE | 2022-12-25 18:12 | CON ---
Date of Consultation: 12/25/2022 Reason For Consultation: Elevated troponin. History Of Present Illness: This is a 67-year-old female, who. DICTATION ENDS HERE /SILVESTRE Voice ID: [id number] Report ID: [id number]
[2022-12-25] MEDS: ATORVASTATIN 40 MG TAB PO SCH (20:27)
[2022-12-25] MEDS: TRAZODONE 50 MG TABLET PO SCH (20:27)
[2022-12-25] MEDS: PREGABALIN 50 MG CAP PO SCH (20:27)
[2022-12-25] MEDS: ARIPIPRAZOLE 2 MG PO SCH (20:28)
[2022-12-25] MEDS: ROPINIROLE HCL 1 MG TAB PO SCH (20:28)
[2022-12-25] MEDS: HYDROCORTISONE SUC 100 MG INJ IV SCH (20:30)
[2022-12-25 21:45] VITALS: BMI 32.8
[2022-12-25] MEDS ORDERED: VANCOMYCIN 1 GM in NA CHLORIDE 0.9% 250 ML IVPB SCH (22:00)
[2022-12-26] MEDS: Ringers Lactate 1,000 ML IV SCH ×2 (05:59→19:47)
[2022-12-26 07:05] LABS: Phosphorus 2.4 mg/dL (2.5-4.9); Potassium 3.9 mEq/L (3.5-5.1); Uric Acid 6.3 mg/dL (2.6-6.0)
[2022-12-26 07:10] LABS: MCV 88.9 fL (80-100); MPV 8.5 fL (7.6-11.3); Platelets 200 thou/uL (152-406); RBC Red Blood Cell Count 3.94 M/uL (3.86-4.86)
[2022-12-26] MEDS: ASPIRIN EC 81 MG TAB PO SCH (07:48)
[2022-12-26] MEDS: HYDROCORTISONE SUC 100 MG INJ IV SCH (07:48)
[2022-12-26] MEDS: ENOXAPARIN 40 MG/0.4 ML SQ SCH (07:48)
[2022-12-26] MEDS: FAMOTIDINE 20 MG TAB PO SCH (07:49)
[2022-12-26] MEDS: CEFTRIAXONE 2,000 MG in NA CHLORIDE 0.9% 100 ML IV SCH (07:49)
[2022-12-26] MEDS: VANCOMYCIN 1.5 GM in NA CHLORIDE 0.9% 500 ML IVPB SCH (09:04)
--- NOTE | 2022-12-26 12:01 | P.PN ---
Subjective Date of Service: 12/26/22 Primary Care Provider: Dr. Brennan Chief Complaint: septic shock secondary to strep pneumonia Subjective: Improving (Patient is improving doing better off vasopressors feeling better hemodynamically stable) Review of Systems Unremarkable Physical Examination - Vital Signs Temperature: 97.9 F Blood Pressure: 130/85 Pulse: 79 Respirations: 18 Pulse Ox (%): 94 - Physical Exam General: Alert, In no apparent distress, Oriented x3 HEENT: Atraumatic Neck: Supple Respiratory: Clear to auscultation bilaterally - Studies Medications List Reviewed: Yes Assessment And Plan - Current Problems (Diagnosis) (1) Bacteremia due to Streptococcus pneumoniae Current Visit: Yes Status: Acute Plan: Patient is 67 years of age admitted with pneumonia and secondary pneumococcal bacteremia she is improving off vasopressors DC vancomycin white count is elevated I suspect is from the steroids she is back to low-dose prednisone kidney function is now normal stable to transfer to the floor continue with IV antibiotics for another 2 days until the white count is down and consider discharging home on p.o. high-dose levofloxacin 750 mg daily for a week Discharge Plan: Home Plan to discharge in: 48 Hours
--- NOTE | 2022-12-26 12:07 | P.PN ---
Subjective Date of Service: 12/26/22 Primary Care Provider: Dr. Brennan Chief Complaint: septic shock secondary to strep pneumonia Subjective: Improving BLAINE CAME WITH ONE SIDE CHEST PAIN THAT WAS PLEURITIC HAD DYSPNEA SO SHE REPORTED TO ER. SHE HAS PNEUMONIALOBAR , BACTERIAL WITH HIGH WBC COUNT. SHE WAS GIVEN VANCOMYCIN AND CEFEPIM BY PA. LATER SHE GREW GRAMPOS COCCI IN CHAINS AND PAIRS IN BLOOD SUGGESTIVE OF STREP PNEUMONIA. WE KEPT HER ON VANCOMYCIN I GAVE HER STRESS DOSE OF STEROIDS HER BP WAS LOW NORMAL AND SHE IS ON ORAL STEROIDS AT HOME FOR RA. BLAINE IF FEELING LOT BETTER. HAS MILD CHEST PAIN NO DYSPNEA. Review of Systems 10-point ROS is otherwise unremarkable General: Weakness Physical Examination - Vital Signs Temperature: 97.9 F Blood Pressure: 130/85 Pulse: 79 Respirations: 18 Pulse Ox (%): 94 - Physical Exam General: Alert, In no apparent distress HEENT: Atraumatic, PERRLA, EOMI Neck: Supple, JVD not distended Respiratory: Clear to auscultation bilaterally, Normal air movement Cardiovascular: Regular rate/rhythm, Normal S1 S2 Gastrointestinal: Normal bowel sounds, No tenderness Musculoskeletal: No tenderness Integumentary: No rashes Neurological: Normal speech, Normal tone, Normal affect Lymphatics: No axilla or inguinal lymphadenopathy - Studies Medications List Reviewed: Yes Assessment And Plan - Current Problems (Diagnosis) (1) Bacteremia due to Streptococcus pneumoniae Current Visit: Yes Status: Acute Plan: BC2 POS IV VANCOMYCIN IV FLUIDS. STEROIDS STRESS DOSE SHE IS HYPOTENSE CONT IV ROCEPHIN CHANGED BY DR Cristi ROSS SHE HAS STREP PNEUMONIA IN BLOOD. MAY BE ABLE TO GO HOME IN AM. OFF IV STEROIDS NOW BACK TO ORAL. (2) Septic shock due to gram-positive bacteria Current Visit: Yes Status: Acute (3) Immunocompromised Current Visit: Yes Status: Chronic Plan: HAS RA ON IMMUNOSUPPRESSIVE MEDS (4) Immune deficiency disorder Current Visit: Yes Status: Acute (5) SIRS (systemic inflammatory response syndrome) Current Visit: Yes Status: Acute Plan: ABOVE IV , ABX, STEROIDS PROGNOSIS GUARDED
--- NOTE | 2022-12-26 16:15 | CON ---
Date of Consultation: 12/25/2022 Reason For Consultation: Elevated troponin. History Of Present Illness: A 67-year-old female with history of dyslipidemia, peripheral neuropathy , rheumatoid arthritis, presented to the emergency room with chills and shortness of breath and cough and pain in the right side of the chest while coughing. She had a routine troponin checked. It was 59.9, but then trended down. I saw her by bedside. She does not have any chest pain, but she is sh ort of breath with cough. Past Medical History: As outlined above in HPI. Medications: Refer to reconciliation sheet for detailed list. Allergies: NO KNOWN DRUG ALLERGIES. Family History: No premature coronary artery disease or cancer. Social History: She does not smoke or drink. Does not use any drugs. Review of Systems: All systems reviewed and they were negative except what mentioned in HPI. Physical Examination: Vital Signs: Reviewed. Head and Neck: Pupils are equal, reactive to light. Intact eye movements. No JVD. No cervical lym phadenopathy. Neck is supple. Thyroid is not enlarged. Lungs: Bilateral rhonchi. No accessory muscle use or muscle retraction. Heart: Regular rate and rhythm. No extra sounds. Abdomen: Soft, nontender. Bowel sounds positive. No organomegaly. No masses or hernia. No rigidi ty or rebound. Extremities: No edema, clubbing, or cyanosis. Intact pulses. Skin: No rash. Neurologic: Alert, awake. No acute focal deficits appreciated. Investigations: Her troponin was 69.9 and went down to 30.2. Her BUN is 27, creatinine 0.9, and hem oglobin was 10.9, white blood count is 80,000. Assessment And Recommendations: 1.Elevated troponin. This is likely demand. On echo, normal ejection fraction, no wall motion abno rmalities. No further cardiac workup is recommended during this hospital stay. I will recommend to continue baby aspirin and high-dose statin and plan for outpatient evaluation with a stress test once the pneumonia is resolved. 2.Sepsis from pneumonia, on antibiotics. 3.Dyslipidemia. Continue Lipitor 40 mg at bedtime. Cardiology will sign off on the case and we brody l follow her up as an outpatient. SR/MODL Voice ID: [id number] Report ID: [id number]
--- NOTE | 2022-12-26 20:39 | P.PN ---
Date of Service: 12/26/22 Vital Signs Temp Pulse Resp BP Pulse Ox 96.9 F 69 32 H 119/78 94 12/26/22 19:00 12/26/22 20:00 12/26/22 20:00 12/26/22 20:00 12/26/22 20:00 Medications Aspirin (Aspirin Ec 81 Mg Tab) 81 mg PO DAILY [facility] Last Admin: 12/26/22 07:48 Dose: 81 mg Atorvastatin Calcium (Atorvastatin 40 Mg Tab) 40 mg PO BEDTIME [facility] Last Admin: 12/25/22 20:27 Dose: 40 mg Enoxaparin Sodium (Enoxaparin 40 Mg/0.4 Ml) 40 mg SQ DAILY [facility] Last Admin: 12/26/22 07:48 Dose: 40 mg Famotidine (Famotidine 20 Mg Tab) 20 mg PO DAILY [facility]; Protocol Last Admin: 12/26/22 07:49 Dose: 20 mg Home Med (Aripiprazole [Abilify]) 2 mg PO BEDTIME [facility] Last Admin: 12/25/22 20:28 Dose: Not Given Ceftriaxone Sodium 2,000 mg/ (Sodium Chloride) 100 mls @ 200 mls/hr IV DAILY [facility]; Protocol Last Admin: 12/26/22 07:49 Dose: 100 mls Lactated Ringer's (Lactated Ringers) 1,000 mls @ 100 mls/hr IV .Q10H [facility] Last Admin: 12/26/22 19:47 Dose: 1,000 mls Prednisone (Prednisone 5 Mg Tab) 5 mg PO DAILY [facility] Pregabalin (Pregabalin 50 Mg Cap) 100 mg PO BEDTIME [facility] Last Admin: 12/25/22 20:27 Dose: 100 mg Ropinirole HCl (Ropinirole Hcl 1 Mg Tab) 2 mg PO BEDTIME [facility] Last Admin: 12/25/22 20:28 Dose: 2 mg Sodium Chloride (Flush Normal Saline 10 Ml) 10 ml IV BID [facility] Last Admin: 12/26/22 07:49 Dose: 10 ml Trazodone HCl (Trazodone 50 Mg Tablet) 100 mg PO BEDTIME [facility] Last Admin: 12/25/22 20:27 Dose: 100 mg Microbiology Results 12/24/22 08:03 Blood - Blood Aerobic Blood Culture - Preliminary Strep Pneumoniae 12/24/22 08:03 Blood - Blood Blood Culture Gram Stain - Preliminary 12/24/22 08:03 Blood - Blood Anaerobic Blood Culture - Preliminary Strep Pneumoniae 12/24/22 08:03 Blood - Blood Gram Stain - Preliminary 12/24/22 09:35 Blood - Blood Aerobic Blood Culture - Preliminary Strep Pneumoniae 12/24/22 09:35 Blood - Blood Blood Culture Gram Stain - Preliminary 12/24/22 09:35 Blood - Blood Anaerobic Blood Culture - Preliminary Strep Pneumoniae 12/24/22 09:35 Blood - Blood Gram Stain - Preliminary 12/24/22 08:27 Nasopharnyx Respiratory Syncytial Virus Ag Scrn - Final 12/24/22 08:27 Nasopharnyx Influenza Type A Antigen Screen - Final 12/24/22 08:27 Nasopharnyx Influenza Type B Antigen Screen - Final Assessment/ Plan: Nephrology No dyspnea. ALEXANDER No chest pain Feeling better No acute events overnight Vitals, medications, blood work and imaging reviewed in the chart. General: In no apparent distress, Oriented x3, Cooperative HEENT: Atraumatic Neck: Supple Respiratory: Normal air movement, Crackles/rales Cardiovascular: No edema, Regular rate/rhythm Gastrointestinal: Soft and benign, Non-distended Musculoskeletal: No clubbing, No contractures Integumentary: No rashes, No cyanosis Neurological: Normal speech Blood work reviewed in the chart. Imagings Data: EXAM DESCRIPTION: CT - Chest For Pe Angio - 12/24/2022 9:05 am CLINICAL HISTORY: Chest pain COMPARISON: None. TECHNIQUE: Dynamically enhanced axial 3 mm thick images of the chest were obtained during administration of 100 mL Isovue 370 IV contrast. Coronal and oblique reconstruction images were generated and reviewed. Exam utilizes a protocol for optimal evaluation of pulmonary arterial tree. Maximum intensity projections 3D imaging was utilized All CT scans are performed using dose optimization technique as appropriate and may include automated exposure control or mA/KV adjustment according to patient size. FINDINGS: A pulmonary embolus is not seen. A thoracic aortic aneurysm is not noted. A pleural effusion is not seen. A pericardial effusion is not seen. Right lower lobe consolidation IMPRESSION: Negative for a pulmonary embolism. Right lower lobe consolidation consistent pneumonia. This should be followed until it has cleared to help exclude post obstructive process/underlying mass EXAM DESCRIPTION: US - Renal Ultrasound-Complete - 12/24/2022 12:00 pm CLINICAL HISTORY: Acute renal insufficiency COMPARISON: None FINDINGS: The right kidney measures 11 cm with a normal echotexture. The left kidney measures 11 cm with a normal echotexture. Hydronephrosis is not seen. No gross abnormality of bladder IMPRESSION: Unremarkable renal ultrasound. Conclusions/Impression: Stage II FREDDY likely due to hypovolemia -No NSAIDs -Continue IVF with LR Metabolic Acidosis, improved -Continue IVF with LR Hypophosphatemia -Neutr-phos prn -Encourage nutrition Hypoalbuminemia -Encourage nutrition Anemia in chronic illness -Monitor H&H Attending note reviewed
[2022-12-26] MEDS: TRAZODONE 50 MG TABLET PO SCH (20:44)
[2022-12-26] MEDS: ROPINIROLE HCL 1 MG TAB PO SCH (20:44)
[2022-12-26] MEDS: ATORVASTATIN 40 MG TAB PO SCH (20:44)
[2022-12-26] MEDS: PREGABALIN 50 MG CAP PO SCH (20:44)
[2022-12-26] MEDS: ARIPIPRAZOLE 2 MG PO SCH (20:45)
[2022-12-26 22:11] VITALS: O2SAT 98
[2022-12-27 06:59] LABS: Hematocrit 37.1 % (36.0-45.0); MCV 89.8 fL (80-100); MPV 8.5 fL (7.6-11.3); Platelets 176 thou/uL (152-406); RBC Red Blood Cell Count 4.13 M/uL (3.86-4.86)
[2022-12-27] MEDS: Ringers Lactate 1,000 ML IV SCH (07:07)
[2022-12-27 07:16] LABS: Potassium 3.8 mEq/L (3.5-5.1)
[2022-12-27] MEDS: CEFTRIAXONE 2,000 MG in NA CHLORIDE 0.9% 100 ML IV SCH (08:30)
[2022-12-27] MEDS: ENOXAPARIN 40 MG/0.4 ML SQ SCH (08:33)
[2022-12-27] MEDS: ASPIRIN EC 81 MG TAB PO SCH (08:33)
[2022-12-27] MEDS: FAMOTIDINE 20 MG TAB PO SCH (08:34)
[2022-12-27 08:45] VITALS: BP 119/66; TEMP 97.3
[2022-12-27] MEDS ORDERED: predniSONE 5 MG TAB PO SCH (09:00)
--- NOTE | 2022-12-27 18:14 | P.DS ---
Admission Date: 12/24/22 Discharge Date: 12/27/22 Primary Care Provider: Dr. Brennan Disposition: ROUTINE DISCHARGE Discharge Condition: FAIR Reason for Admission: septic shock secondary to strep pneumonia - Problems (1) Bacteremia due to Streptococcus pneumoniae Status: Acute (2) Septic shock due to gram-positive bacteria Status: Acute (3) Immunocompromised Status: Chronic (4) Immune deficiency disorder Status: Acute (5) SIRS (systemic inflammatory response syndrome) Status: Acute Hospital Course: BLAINE IS DOING GREAT. SHE HAS IMPROVED VERY WELL. SHE IS STABLE TO GO HOME ON ORAL LEVAAQIN. FU IN OFFICE IN A WEEK. Vital Signs/Physical Exam: Temp Pulse Resp BP Pulse Ox 97.3 F 68 16 119/66 95 12/27/22 08:00 12/27/22 08:00 12/27/22 08:00 12/27/22 08:00 12/27/22 08:00 Laboratory Data at Discharge: WBC 11.30 thou/uL (4.3-10.9) H 12/27/22 06:41 Hgb 12.1 g/dL (12.0-15.0) 12/27/22 06:41 Hct 37.1 % (36.0-45.0) 12/27/22 06:41 Plt Count 176 thou/uL (152-406) 12/27/22 06:41 PT 19.0 SECONDS (9.5-12.5) H 12/25/22 04:27 INR 1.73 12/25/22 04:27 APTT 88.2 SECONDS (24.3-36.9) H 12/24/22 08:03 Sodium 144 mEq/L (136-145) 12/27/22 06:41 Potassium 3.8 mEq/L (3.5-5.1) 12/27/22 06:41 BUN 24 mg/dL (7-18) H 12/27/22 06:41 Creatinine 0.68 mg/dL (0.55-1.02) 12/27/22 06:41 Glucose 72 mg/dL (74-106) L 12/27/22 06:41 Uric Acid 6.3 mg/dL (2.6-6.0) H 12/26/22 06:32 Phosphorus 2.4 mg/dL (2.5-4.9) L 12/26/22 06:32 Magnesium 2.2 mg/dL (1.6-2.4) 12/25/22 04:27 Total Bilirubin 0.9 mg/dL (0.2-1.0) 12/25/22 04:27 AST 17 U/L (15-37) 12/25/22 04:27 ALT 24 U/L (13-56) 12/25/22 04:27 Alkaline Phosphatase 64 U/L (45-117) 12/25/22 04:27 Home Medications: Alpha Lipoic Acid 600 mg PO BID 12/24/22 Aripiprazole [Abilify] 2 mg PO BEDTIME 12/24/22 Aspirin [Aspirin EC 81 MG] 81 mg PO DAILY 12/24/22 Atorvastatin Calcium 40 mg PO BEDTIME 12/24/22 Celecoxib 200 mg PO BID 12/24/22 Duloxetine HCl 60 mg PO DAILY 12/24/22 Famotidine 20 mg PO DAILY 12/24/22 Hydroxychloroquine Sulfate 200 mg PO BID 12/24/22 Pregabalin 100 mg PO BEDTIME 12/24/22 Ropinirole HCl 2 mg PO BEDTIME 12/24/22 Trazodone HCl 100 mg PO BEDTIME 12/24/22 predniSONE [Prednisone*] 5 mg PO DAILY 12/24/22 levoFLOXacin [Levaquin*] 750 mg PO DAILY #10 tab 12/27/22 New Medications: levoFLOXacin [Levaquin*] 750 mg PO DAILY #10 tab Followup: Yousuf Mulligan MD [ACTIVE - CAN ADMIT] - (call for an apointment for 2 weeks) Mynor Paredes [ACTIVE - CAN ADMIT] - (call for an follow up apointment) Raymond Brennan MD [Primary Care Provider] - 1 Week Priyank Denson MD [ACTIVE - CAN ADMIT] - (call for a folow up apointment)
== END 2022-12-27 11:20 | disposition home or self-care (01) | DRG 871 ==
LOC: ER 07:36 → ERHOLD 10:39 → 3RD-ICU 13:51 → 2ND 12-27 01:25
PROVIDERS: ADMIT Internal Medicine; ATTEND Internal Medicine
DX: A40.3 Sepsis due to Streptococcus pneumoniae (principal); I21.A1 Myocardial infarction type 2; J18.9 Pneumonia, unspecified organism; R65.21 Severe sepsis with septic shock; N17.9 Acute kidney failure, unspecified; E87.20 Acidosis, unspecified; D63.8 Anemia in other chronic diseases classified elsewhere; E78.5 Hyperlipidemia, unspecified; G62.9 Polyneuropathy, unspecified; E83.39 Other disorders of phosphorus metabolism; E88.09 Other disorders of plasma-protein metabolism, not elsewhere classified; F32.A Depression, unspecified; G25.81 Restless legs syndrome; Z79.52 Long term (current) use of systemic steroids; Z79.82 Long term (current) use of aspirin; Z90.49 Acquired absence of other specified parts of digestive tract; Z90.711 Acquired absence of uterus with remaining cervical stump; Z79.899 Other long term (current) drug therapy; Z87.891 Personal history of nicotine dependence
CPT/HCPCS: 36415; 71275; 76770; 80048; 80053; 80076; 80202; 81001; 83605; 83735; 83880; 84100; 84145; 84484; 84550; 85025; 85027; 85610; 85730; 87040; 87077; 87186; 87205; 87635; 87804; 87807; 93005; 93306; 94640; 96361; 96365; 96366; 96367; 96375; 99285; J0692; J0696; J1650; J1720; J2930; J7030; J7040; J7050; J7120; J7512; J7613; J7644; Q9967

== ENCOUNTER 2023-04-20 10:20 | Day surgery (SDC) | payer OTHER, MEDICARE ==
[2023-04-20] MEDS ORDERED: Ringers Lactate 1,000 ML IV ONE ×2 (10:41→16:22)
[2023-04-20] MEDS ORDERED: CEFAZOLIN SODIUM 1 GM/VIAL ONE (10:41)
[2023-04-20] MEDS ORDERED: dexAMETHasone 10 MG/ML VIAL ONE ×2 (11:58→13:43)
[2023-04-20] MEDS ORDERED: GLYCOPYRROLATE 0.2 MG/ML SYR ONE (11:58)
[2023-04-20] MEDS ORDERED: KETOROLAC 30 MG/ML INJ ONE (11:58)
[2023-04-20] MEDS ORDERED: KETAMINE HCL IN 0.9 % NACL 50 MG/5 ML SYRINGE IV ONE (11:58)
[2023-04-20] MEDS ORDERED: LIDOCAINE 2% MPF 5 ML VIAL ONE (11:58)
[2023-04-20] MEDS ORDERED: FENTANYL CITR 100 MCG/2 ML ONE ×2 (11:58→14:29)
[2023-04-20] MEDS ORDERED: ONDANSETRON 4 MG/2 ML VIAL ONE (11:58)
[2023-04-20] MEDS ORDERED: MIDAZOLAM HCL 2 MG/2 ML INJ ONE (11:58)
[2023-04-20] MEDS ORDERED: propofoL 200 MG/20 ML VIAL IV ONE (11:59)
[2023-04-20] MEDS ORDERED: BACITRACIN OINTMENT 14 GM TUBE TOP ONE (12:47)
[2023-04-20] MEDS ORDERED: LIDOCAINE HCL/EPINEPHRINE 20 ML MDV ONE (12:47)
[2023-04-20] MEDS ORDERED: Mastisol Adhesive Liq ONE (16:29)
--- NOTE | 2023-04-20 17:25 | RAD REPORT ---
EXAM DESCRIPTION: SHAWNChest Single View04/20/2023 5:18 pm CLINICAL HISTORY: S/P INSPIRE COMPARISON: Chest Pa And Lat (2 Views) dated 01/03/2023 TECHNIQUE: Portable AP view of the chest. FINDINGS: Decreased inspiratory effort limits evaluation. Mild left basilar airspace opacification w ith costophrenic angle blunting. Newly placed right chest wall nerve stimulator battery pack with alonzo ctrode tracking towards the right neck. No pneumothorax or sizable effusion. The cardiomediastinal c ontours are unremarkable. IMPRESSION: Mild left basilar airspace opacity, may reflect atelectasis given the degree of suboptim al inspiration. Right chest wall nerve stimulator battery pack in place.
--- NOTE | 2023-04-20 17:26 | RAD REPORT ---
EXAM DESCRIPTION: RAD - Neck Soft Tissue - 04/20/2023 5:19 pm CLINICAL HISTORY: Chest Single View dated 04/20/2023 COMPARISON: Chest radiograph of the same day. TECHNIQUE: Single view of the neck soft tissues. FINDINGS: Nerve stimulator electrode is present in the anterior neck, with some postoperative gas an teriorly. Prevertebral soft tissues are unremarkable. Visualized bony cervical spine shows mild degen erative changes. Sequelae of prior dental treatments. IMPRESSION: Postprocedural changes of nerve stimulator placement as above.
[2023-04-20] MEDS ORDERED: ACETAMINOPHEN 325 MG TABLET ONE ×2 (18:25→18:46)
[2023-04-20 18:28] VITALS: BP 134/74; TEMP 98.1; O2SAT 98
--- NOTE | 2023-04-24 18:44 | OP ---
Surgeon: KACEY VILLEGAS Preoperative Diagnoses: 1.Chronic obstructive sleep apnea, intolerant to CPAP therapy. 2.Ankyloglossia. 3.Body mass index between 32.0 and 32.9, adult. Postoperative Diagnoses: 1.Chronic obstructive sleep apnea, intolerant to CPAP therapy. 2.Ankyloglossia. 3.Body mass index between 32.0 and 32.9, adult. Procedure: 1.Drug-induced sleep endoscopy. 2.Insertion of hypoglossal nerve neurostimulator electrode and generator and breathing sensor electr ode. 3.Lingual frenulectomy. Anesthesia: General endotracheal anesthesia was administered. I also infiltrated approximately 12 m L 1% lidocaine with 1:100,000 epinephrine. 2 cc were injected at the lingual frenulum and the remain ing 10 cc were injected at the right neck and right upper chest incision sites. Estimated Blood Loss: Scant, less than 10 mL. Findings: Excellent visualization of the lingual, hyoglossus, and hypoglossal nerves with multiple n erve branches extending off including the transverse vertical and genioglossus nerves. C1 nerve was not visualized. Lingual frenulum grade 4/4, tethering with dimpling of the tongue. The patient had complete anterior/posterior velopharyngeal collapse and less than 70% of lateral wall collapse and no evidence of concentric collapse. Complications: None. Disposition: Stable. The patient tolerated the procedure well. Indication For Procedure: The patient is a pleasant lady, who presented to outpatient clinic with ch ronic obstructive sleep apnea, in which she has been on a CPAP machine for years and she had an assoc iated BMI of 32.4. She has been intolerant and unable to achieve benefit from positive-pressure ther apy and she has passed the clinical polysomnographic and endoscopic screening criteria and presents t sharifa for the implant. Description Of Procedure: The patient was transferred from the preoperative holding area to the oper ative suite by Department of Anesthesia, placed on the operating room table supine, and sedated in th e normal fashion. The patient was given appropriate dose of propofol. An endoscope was introduced i nto the left nasal cavity back to the velopharynx at an elevated position and the velopharynx was vis ualized over a period of 3-5 minutes to assess velopharyngeal collapse. Along with the Inspire impla nt outside sales representative, we visualized her airway and found that she would have predominant anterior/chemical applicator ior collapse with no evidence of concentric collapse and less than 70% of lateral wall collapse. Claire s, she met criteria to have the Inspire implant performed. Next, a shoulder roll was placed under the patient and her head was slightly rotated to the left. Pr ior to prepping and draping, the electrodes were placed in the genioglossus and hyoglossus muscle and connected to the nerve integrity monitoring system for intraoperative nerve monitoring. I then astrid ed the right upper neck and right upper chest incisions and I infiltrated approximately 10 mL of 1% l idocaine with 1:100,000 epinephrine at the incision sites. The patient was intubated in the normal f ashion and we placed the endotracheal tube to the right oral commissure. I infiltrated the lingual f renulum with approximately 2 mL of 1% lidocaine with 1:100,000 epinephrine. I then excised a wedge o f mucosa of the lingual frenulum with curved iris scissors and soft tissue forceps. I then reapproxi mated the mucosal edges once I released the tongue and I utilized 5-0 chromic gut suture in a continu ous running fashion to perform the lingual frenulectomy. The endotracheal tube was then taped to the left oral commissure and the patient was sterilely prepped and draped. A modified submandibular incision was made in the right upper neck, approximately 2 cm below the carson ible. Dissection was carried down through the subcutaneous tissue and platysma. The anterior/inferi or border of the submandibular gland was identified as well as the digastric tendons. The submandibu lar gland and the overlying fascia with the marginal mandibular nerve were retracted posteriorly. Th e digastric tendon was retracted inferiorly. Dissection continued down into the digastric triangle a nd the posterior border of the mylohyoid muscle was freed up posteriorly and retracted anteriorly. W ith balance retraction, the hypoglossal nerve was identified in its usual fashion and was dissected u p towards the floor of the mouth. The superior/posterior branches innervating the hyoglossus muscle were identified using the nerve integrity monitoring stimulator and anatomical cues. The cuff electr ode for the hypoglossal nerve stimulator was placed distally to these branches, innervating genioglos hilario transverse and vertical muscles. The stimulation lead was anchored to the digastric tendon using two 3-0 silk sutures and the lead body slack between the cuff and the anchor was gently tucked deep to the submandibular gland. A second 5 cm incision was made in the right upper chest over the second intercostal space approximat kumar 3 cm lateral to the sternal margin. Dissection was carried down through the skin and subcutaneou s tissue to the fascia of the pectoralis muscle. An inferior pocket for the generator was created de ep to the subcutaneous layer and superficial to the fascia of the pectoralis muscle. The pectoralis major fascia was dissected directly over the second intercostal space with subsequent blunt dissectio n through the muscle. The pectorals major/minor was then retracted to expose the fatty layer just couch perficial to the external intercostals. The fatty layer was carefully swept away to expose the exter nal intercostal muscles. A throw-down base knot was placed to the fascia of the external intercostal s just lateral to the anterior external membrane using a 3-0 silk suture. A fasciotomy through the e xternal intercostals was performed approximately 5 mm lateral to the suture knot and the respiratory sensor lead was advanced with a sensor facing the pleura into the interfascial plane between the exte rnal and internal intercostals. The primary anchor was sutured into place with 3-0 silk on the exter nal intercostals. The secondary anchor was sutured with 3-0 silk to the pectorals major allowing rubia quate slack between the anchors. The stimulation lead was then tunneled in a subplatysmal plane with blunt dissection under direct vis ualization and brought out into the subclavicular chest pocket, where both the stimulation lead and t he respiratory sensing lead were connected to the implantable pulse generator, using the 2 person, 3- handed approach. The implantable pulse generator was then placed into the subclavicular pocket, ensuring lead body was deep to the generator and secured with use of air knots to the pectoralis fascia using 2-0 silk sutu res. Diagnostic evaluation confirmed good placement. The stimulation cuff was demonstrated by activ ation of the genioglossus and transverse/vertical muscles, resulting in unhindered stiffened tongue p rotrusion confirmed visually. Diagnostic evaluation also confirmed good respiratory sensor placement as demonstrated by sensing waveform with good rise and fall associated with the patient respirations . All the wounds were thoroughly irrigated and closed in 3 layers with deep 3-0 Vicryl sutures and the epidermis and dermal layers were reapproximated with 4-0 Monocryl in a simple interrupted and continu ous subcuticular fashion. Mastisol and Steri-Strips were applied followed by pressure dressings. Th e patient was then awakened, extubated, and transferred to the recovery room in stable condition and subsequently discharged home on antibiotics and analgesic medication. I was present for and performe d the entire procedure. PIERRE/SILVESTRE Voice ID: [id number] Report ID: [id number]
== END 2023-04-20 18:35 | disposition home or self-care (01) ==
LOC: OR 10:20
PROVIDERS: ATTEND Otolaryngology Facial Plastic Surgery
PROC: 0DJ08ZZ Inspection of Upper Intestinal Tract, Via Natural or Artificial Opening Endoscopic (ICD-10-PCS; 2023-04-20)
PROC: 0CB7XZZ Excision of Tongue, External Approach (ICD-10-PCS; 2023-04-20)
PROC: 0JH60MZ Insertion of Stimulator Generator into Chest Subcutaneous Tissue and Fascia, Open Approach (ICD-10-PCS; principal; 2023-04-20 12:00)
DX: G47.33 Obstructive sleep apnea (adult) (pediatric) (principal); R06.83 Snoring; Q38.1 Ankyloglossia; K21.9 Gastro-esophageal reflux disease without esophagitis; E78.5 Hyperlipidemia, unspecified; F32.A Depression, unspecified; Z79.899 Other long term (current) drug therapy
CPT/HCPCS: 42975; 64582; 41115; 71045; 70360; J2704; J2001; J2250; J3010 ×2; J1100; J2405; J7120 ×2; J0690